=== PATIENT | female | born 1955 | race Caucasian/White ===

== ENCOUNTER → 2019-12-06 08:00 | Outpatient (CLI) | payer BC, SELFPAY ==
--- NOTE | ~2019-12-06 | XR_ITS ---
XR shoulder RT min 2V DATE: 12/06/2019 08:18 INDICATION: Right shoulder pain TECHNIQUE: 4 views COMPARISON: None FINDINGS: Diffuse osteopenia. Normal alignment at the acromion clavicular and glenohumeral joints. No fracture or dislocation, periosteal reaction or bone destruction. There is slight calcification ne ar the insertion of the rotator cuff at the proximal humerus, which may represent minimal calcific te ndinitis. IMPRESSION: Osteopenia Possible minimal calcific tendinitis of the rotator cuff Reviewed, dictated and finalized at location A.
== END ==
PROVIDERS: Visit Provider Family Medicine
DX: M85.811 Other specified disorders of bone density and structure, right shoulder (principal)
CPT/HCPCS: 73030

== ENCOUNTER 2020-04-04 21:25 | Observation (INO) | payer BC, SELFPAY ==
--- NOTE | ~2020-04-04 | CT_ITS ---
EXAMINATION: CT chest wo con DATE: 04/04/2020 22:54 INDICATION: Shortness of breath TECHNIQUE: Computed tomography (CT) of the chest was performed without intravenous contrast. The dose -length product was 1329.49 mGy-cm. Automated exposure control and iterative reconstruction technique were employed. COMPARISON: chest x-ray dated 05/02/2017 FINDINGS: Enlarged pulmonary arteries consistent with pulmonary hypertension. Cardiomegaly. There is patchy lower lobe airspace consolidation, right greater than left. Borderline size mediastinal lymph nodes, likely reactive. Trace right pleural effusion. Upper abdomen is unremarkable. IMPRESSION: 1. Patchy bibasilar airspace disease, right greater than left, most likely atelectasis or pneumonia. 2: Pulmonary arterial hypertension. 3: Cardiomegaly. 4.: Small right pleural effusion. Reviewed, dictated and finalized at location A. EM ARCHIVE ANALYST IMPRESSION: 1. Patchy bibasilar airspace disease, right greater than left, most likely atel ectasis or pneumonia. 2: Pulmonary arterial hypertension. 3: Cardiomegaly. 4.: Small right pleural effusion.
--- NOTE | ~2020-04-04 | XR_ITS ---
EXAMINATION: XR chest 1V portable DATE: 04/07/2020 06:02 INDICATION: congestion. TECHNIQUE: frontal view of the chest was obtained. COMPARISON: Chest radiograph dated 05/02/2017 FINDINGS: Mild streaky bibasilar atelectasis. No pulmonary edema, pleural effusion or pneumothorax. Cardiomegal y. IMPRESSION: 1. Cardiomegaly. 2. Mild bibasilar atelectasis. Reviewed, dictated and finalized at location A. TENDER WASHING
[2020-04-04 21:35] VITALS: BP 157/92; PULSE 80; RESP 18; TEMP 36.6; O2SAT 97
--- NOTE | 2020-04-04 21:56 | ECG_ITS ---
Measurements Intervals [place] Rate: 94 P: NE: 0 QRS: 56 QRSD: 100 T: 12 QT: 349 QTc: 437 Interpretive Statements ATRIAL FIBRILLATION LOW QRS VOLTAGE IN PRECORDIAL LEADS INCOMPLETE RIGHT BUNDLE BRANCH BLOCK BORDERLINE ST-T WAVE ABNORMALITY- INFERIOR LEADS ABNORMAL ECG Electronically Signed On 04-05-2020 7:19:52 VP PURCH[employer]ING by Vick Cole D.O.
--- NOTE | 2020-04-04 22:14 | ED.SOB ---
HPI - SOB/Dyspnea General Chief Complaint: Shortness of Breath/Dyspnea Stated Complaint: SOB Time Seen by Provider: 04/04/20 21:57 Source: patient Mode of arrival: ambulatory Limitations: no limitations History of Present Illness HPI Narrative: Patient is 65-year-old female complaining of shortness of breath, worse with exertion, accompanied by increasing bilateral lower extremity edema that started today. Patient states that she does take a water pill and possibly history of congestive heart failure, not sure. Patient denies any cough, chest pain, abdominal pain, nausea, vomiting, diaphoresis, fever or chills. Related Data Home Medications Medication Instructions Recorded Confirmed losartan 50 mg tablet 50 mg PO DAILY 07/15/19 11/19/19 Allergies Allergy/AdvReac Type Severity Reaction Status Date / Time empagliflozin Allergy Unknown Hives Verified 11/19/19 10:16 iron Allergy Unknown Hives Verified 11/19/19 10:16 liraglutide Allergy Unknown Hives Verified 11/19/19 10:16 metformin Allergy Unknown Itching Verified 11/19/19 10:16 nickel Allergy Unknown Unknown Verified 11/19/19 10:16 adhesive AdvReac Unknown Rash Verified 11/19/19 10:16 Review of Systems Review of Systems: All systems reviewed & are unremarkable except as noted in HPI and below Constitutional: Constitutional: Denies body ache(s), Denies chills, Denies excessive sweating, Denies fatigue, Denies fever(s), Denies headache(s), Denies lethargy, Denies malaise, Denies weakness and Denies weight loss Eyes: Eyes: Denies blurry vision, Denies change in vision and Denies loss of vision ENT: Denies dizziness, Denies ear discharge, Denies headache(s), Denies lip swelling, Denies epistaxis, Denies nasal congestion, Denies neck pain, Denies throat swelling and Denies tongue swelling Cardiovascular: Cardiovascular: Denies chest pain, Denies chest pain at rest, Denies chest pain with activity, Denies diaphoresis, Denies rapid heart rate, Denies irregular heart rhythm, Denies lightheadedness and Denies palpitations Respiratory: Respiratory: Denies chest congestion, Denies cough and Denies hemoptysis Gastrointestinal: Gastrointestinal: Denies abdominal pain, Denies melena, Denies hematochezia, Denies diarrhea, Denies nausea, Denies vomiting and Denies hematemesis Musculoskeletal: Musculoskeletal: Denies abnormal gait, Denies deformity, Denies joint swelling, Denies limited range of motion, Denies neck pain and Denies numbness Neurologic: Denies Abnormal speech present, Denies abnormal gait, Denies confusion, Denies dizziness, Denies headache(s), Denies focal weakness, Denies loss of vision, Denies numbness, Denies Other visual disturbances, Denies Sensory deficit (Neuro) and Denies weakness Psychiatric: Psychiatric: Denies confusion, Denies depression, Denies auditory hallucinations, Denies homicidal ideation and Denies suicidal ideation Endocrine: Endocrine: Denies cold intolerance, Denies excessive sweating, Denies fatigue, Denies heat intolerance and Denies palpitations Hematologic/Lymphatic: Hematologic/Lymphatic: Denies easy bleeding and Denies easy bruising Allergic/Immunologic: Allergic/Immunologic: Denies lip swelling, Denies throat swelling and Denies tongue swelling PMFSH Past Medical History Medical History (Updated 04/05/20 @ 00:02 by Dayton Escobedo MD) A-fib Diabetes Gastroesophageal reflux H/O bone density study (~2019) normal HLD (hyperlipidemia) HTN (hypertension) Paroxysmal atrial fibrillation Vitamin D deficiency Surgical History Surgical History H/O lateral meniscus repair of left knee H/O medial meniscus repair of right knee History of hysterectomy Status post bilateral knee replacements Status post ligament repair Family History Family History Father Hypertension Other Cerebrovascular accident Diabetes mellitus S
[2020-04-04 22:22] LABS: Alveolar/Arterial O2 Gradient 67.8 mmHg; Base Excess ABG -0.7 mEq/l (+/-2.0); Carboxyhemoglobin 0.9 % THb (0-2.0); Fractional Inspired Oxygen 28 %; HCO3 ABG 24.3 mEq/l (22.0-26.0); Methemoglobin ABG 0.2 %THb (0-1.5); Oxygen Saturation ABG 96.1 % (95.0-100.0); Oxyhemoglobin 94.8 % THb (90.0-100.0); PCO2 ABG 41.5 mmHg (35.0-45.0); PO2 ABG 82.9 mmHg (80.0-100.0); PO2 FiO2 Ratio Arterial Blood 2.96 %; Reduced Hemoglobin 4.1 %THb (0-5.0); Total Hemoglobin 13.5 g/dL (12.0-18.0); pH ABG 7.386 (7.350-7.450)
[2020-04-04 22:23] LABS: Basophils Absolute Auto 0.1 K/mm3 (0.0-0.1); Basophils Percent Auto 0.6 % (0.2-1.2); Eosinophils Absolute Auto 0.2 K/mm3 (0-0.3); Eosinophils Percent Auto 1.4 % (0-4.4); Hematocrit 40.6 % (37.0-47.0); Hemoglobin 12.9 g/dL (12.0-15.0); Immature Granulocyte Absolute 0.08 K/mm3 (0.00-0.031); Immature Granulocyte Percent A 0.6 % (0-0.5); Lymphocytes Absolute Auto 1.77 K/mm3 (0.9-3.2); Lymphocytes Percent Auto 14.1 % (18.3-44.2); Mean Corpuscular HGB Conc 31.8 g/dl (32-36); Mean Corpuscular Hemoglobin 27.3 pg (26-34); Mean Corpuscular Volume 85.8 fl (80-100); Mean Platelet Volume 11.3 fl (7.4-10.4); Monocytes Absolute Auto 0.7 K/mm3 (0.1-0.6); Monocytes Percent Auto 5.8 % (2.6-8.5); Neutrophils Absolute Auto 9.7 K/mm3 (1.3-6.7); Neutrophils Percent Auto 77.5 % (45.5-73.1); Platelet Count Result 233 k/mm3 (150-375); Red Blood Count 4.73 M/mm3 (4.2-5.4); White Blood Count 12.5 K/mm3 (4.5-10.0)
[2020-04-04 22:23] LABS: Device NASAL CANNULA; Modified Allen's Test Pass; Site Drawn RIGHT RADIAL
[2020-04-04] MEDS: FUROSEMIDE INJ 40 MG/4 ML VIAL IV PUSH (22:33)
[2020-04-04 22:34] LABS: Alanine Aminotransferase 12 U/L (4-35); Albumin Level 3.9 g/dL (3.5-5.1); Alkaline Phosphatase 67 U/L (38-126); Anion Gap 7 mmol/L (8-16); Aspartate Amino Transferase 22 U/L (14-36); Bilirubin,Total 0.7 mg/dL (0.2-1.3); Blood Urea Nitrogen 13 mg/dL (7-17); Calcium 9.2 mg/dL (8.4-10.2); Carbon Dioxide 30 mmol/L (22-30); Chloride 101 mmol/L (98-107); Estimated Glomerular Filt Rate > 60; Glucose 214 mg/dL (65-105); Potassium 4.7 mmol/L (3.4-5.0); Sodium 138 mmol/L (137-145)
[2020-04-04 22:46] LABS: NT Pro B Type Natriuretic Pept 1210 PG/ML (5-100); Troponin I < 0.012 ng/mL (0.000-0.034)
--- NOTE | 2020-04-04 22:51 | PC.NURSE ---
Patient to CT
[2020-04-05] VITALS (15 sets, daily range): BP systolic 130–159; BP diastolic 67–96; PULSE 76–107; RESP 16–22; TEMP 36.6–36.8; O2SAT 94–98; BMI 57.6
--- NOTE | 2020-04-05 00:53 | PM.IMHP ---
H&P: HPI History of Present Illness Date/Time: 04/05/20 00:53 Chief complaint: CHF Exacerbation, Pulmonary Edema Narrative: Dianne Hassan is a 65 year old morbidly obese Diabetic female with known history of chronic atrial fibrillation anticoagulated on Eliquis, HTN, and hyperlipidemia who presented to the hospital [facility] with a complaint of severe shortness of breath. She has noticed over the past week that she has been experiencing exertional shortness of breath and worsening peripheral edema (increased LE swelling, puffy hands, and abdominal distension. She has a chronic sporadic nonproductive cough which hasn't changed. She denies any recent fevers, chest pain, palpitations, abdominal pain, wheezing, dysuria, rashes, open wounds, or rectal bleeding. She has been taking her Bumex at home as prescribed but does admit that when she travels she stops taking it because she doesn't want to have to stop to urinate frequently. This past week she has been eating salty foods including pizza and potato chips. Even though she is on Bumex for peripheral edema, she states that she has never been diagnosed with heart failure. [facility] she was found to have pulmonary edema on Chest CT and was treated with IV lasix in the ER. She remarks that her breathing has improved already. No other complaints. Review of Systems Review of Systems: All systems reviewed & are unremarkable except as noted in HPI and below PMFSH Past Medical History Medical History A-fib Diabetes Gastroesophageal reflux H/O bone density study (~2018) normal HLD (hyperlipidemia) HTN (hypertension) Paroxysmal atrial fibrillation Vitamin D deficiency Surgical History Surgical History H/O lateral meniscus repair of left knee H/O medial meniscus repair of right knee History of hysterectomy Status post bilateral knee replacements Status post ligament repair Family History Family History Father Hypertension Other Cerebrovascular accident Diabetes mellitus Social History Social History Smoking status: Never smoker Second hand tobacco smoke exposure: No Alcohol intake: never Substance use: never Gender identity (if verbalized by the patient): Female Spiritual care concerns: No Meds Home Medications and Allergies Home Medications Medication Instructions Recorded Confirmed Type metoprolol succinate 50 mg 100 mg PO DAILY #180 tablet 03/11/19 04/05/20 Rx tablet,extended release 24 hr insulin degludec 200 unit/mL (3 100 unit SUB-Q DAILY #45 ml 03/12/19 04/05/20 Rx mL) subcutaneous pen blood sugar diagnostic #300 each 07/15/19 04/05/20 Rx diltiazem HCl 240 mg 240 mg PO BID #180 cap 07/15/19 04/05/20 Rx capsule,extended release 24 hr losartan 50 mg tablet 25 mg PO DAILY 07/15/19 04/05/20 History metformin 1,000 mg tablet 1,000 mg PO BID #180 tablet 07/15/19 04/05/20 Rx apixaban 5 mg tablet 5 mg PO BID #180 tablet 11/19/19 04/05/20 Rx bumetanide 2 mg tablet 2 mg PO DAILY #90 tablet 11/19/19 04/05/20 Rx ergocalciferol (vitamin D2) 1,250 1,250 mcg PO WEEKLY #14 cap 11/19/19 04/05/20 Rx mcg (50,000 unit) capsule pantoprazole 20 mg tablet,delayed 20 mg PO DAILY #90 tablet 11/19/19 04/05/20 Rx release potassium chloride 10 mEq 20 meq PO DAILY #180 tablet 01/27/20 04/05/20 Rx tablet,extended release simvastatin 10 mg PO HS 04/05/20 04/05/20 History Allergies Allergy/AdvReac Type Severity Reaction Status Date / Time empagliflozin Allergy Unknown Hives Verified 11/19/19 10:16 iron Allergy Unknown Hives Verified 11/19/19 10:16 liraglutide Allergy Unknown Hives Verified 11/19/19 10:16 metformin Allergy Unknown Itching Verified 11/19/19 10:16 nickel Allergy Unknown Unknown Verified 11/19/19 10:16 adhesive AdvReac Unknown Rash Emma
--- NOTE | 2020-04-05 02:22 | ADMGEN ---
This patient, Dianne Hassan, was admitted to [facility]. Patient/family oriented to hospital policies and general routines including ID bracelet, bed and alarms, visiting hours, pain management, procedures, bathroom and other care routines, personal items, smoking policy, room service/diet, and visiting hours. Information on how to activate the Rapid Response Team has been discussed. Patient/Family are encouraged to report perceived risks to care and to ask questions if they do not understand what they are told or what they should do.
[2020-04-05 07:00] LABS: Troponin I 0.096 ng/mL (0.000-0.034)
[2020-04-05 09:58] LABS: Glucose Point of Care 103 (65-105)
[2020-04-05] MEDS: BUMETANIDE INJ 1 MG/4 ML VIAL IV PUSH ×2 (10:29→16:24)
[2020-04-05] MEDS: metFORMIN HCL 500 MG TABLET 1000 MG PO ×2 (10:29→16:24)
[2020-04-05] MEDS: APIXABAN 5 MG TABLET PO ×2 (10:29→20:54)
[2020-04-05] MEDS: METOPROLOL SUCCINATE EXT REL 50 MG TABCR 100 MG PO (10:30)
[2020-04-05] MEDS: LOSARTAN POTASSIUM 25 MG TABLET PO (10:30)
[2020-04-05] MEDS: PANTOPRAZOLE SOD SESQUIHYDRATE 20 MG TAB PO (10:30)
[2020-04-05 11:37] LABS: Anion Gap 11 mmol/L (8-16); Blood Urea Nitrogen 10 mg/dL (7-17); Calcium 9.2 mg/dL (8.4-10.2); Carbon Dioxide 27 mmol/L (22-30); Chloride 103 mmol/L (98-107); Estimated CRCL calculation 160 ml/min; Estimated Glomerular Filt Rate > 60; Glucose 142 mg/dL (65-105); Potassium 4.3 mmol/L (3.4-5.0); Sodium 141 mmol/L (137-145)
[2020-04-05 11:56] LABS: Troponin I 0.085 ng/mL (0.000-0.034)
[2020-04-05 12:03] LABS: Free T4 Free Thyroxine Reflex 1.38 ng/dL (0.78-2.19)
[2020-04-05 12:45] LABS: Total Triiodothyronine (T3) 1.32 NG/ML (0.97-1.69)
--- NOTE | 2020-04-05 14:04 | PM.IMPN ---
Progress Note: A&P Assessment and Plan (1) Acute CHF (congestive heart failure): Qualifiers: Heart failure type: unspecified Qualified Code(s): I50.9 - Heart failure, unspecified Code(s): I50.9 - Heart failure, unspecified Status: Acute Assessment and Plan: Type unspecified at present. TSH normal w/ reflex T4, diabetic, fluid restricted, sodium prudent diet. Continue Bumex IV BID. Pat catheter to monitor urine output and quantify urine output. Echocardiogram in am. If ejection fraction decreased may want to increase beta-brooks and decrease calcium channel brooks (2) Leukocytosis: Qualifiers: Leukocytosis type: unspecified Qualified Code(s): D72.829 - Elevated white blood cell count, unspecified Code(s): D72.829 - Elevated white blood cell count, unspecified Status: Acute Assessment and Plan: No obvious source of infection probably stress related and recheck in a.m. (3) Paroxysmal atrial fibrillation: Code(s): I48.0 - Paroxysmal atrial fibrillation Status: Chronic Assessment and Plan: rate controlled. Continue diltiazem, metoprolol, and Eliquis. (4) Diabetes: Qualifiers: Diabetes mellitus type: type 2 Diabetes mellitus intermediate designer insulin use: with intermediate designer use Diabetes mellitus complication status: without complication Qualified Code(s): E11.9 - Type 2 diabetes mellitus without complications; Z79.4 - middle or intermediate school principal (current) use of insulin Code(s): E11.9 - Type 2 diabetes mellitus without complications Status: Chronic Assessment and Plan: Accuchecks, SSI Coverage, Hypoglycemic protocol. Substituted Lantus and lower dose while here and monitor (5) HTN (hypertension): Qualifiers: Hypertension type: unspecified Qualified Code(s): I10 - Essential (primary) hypertension Code(s): I10 - Essential (primary) hypertension Status: Chronic Assessment and Plan: Continue metoprolol and losartan PO and diltiazem. Monitor blood pressure. (6) HLD (hyperlipidemia): Qualifiers: Hyperlipidemia type: unspecified Qualified Code(s): E78.5 - Hyperlipidemia, unspecified Code(s): E78.5 - Hyperlipidemia, unspecified Status: Chronic Assessment and Plan: Continue simvastatin. (7) Gastroesophageal reflux: Qualifiers: Esophagitis presence: esophagitis presence not specified Qualified Code(s): K21.9 - Gastro-esophageal reflux disease without esophagitis Code(s): K21.9 - Gastro-esophageal reflux disease without esophagitis Status: Chronic Assessment and Plan: continue protonix. (8) DVT prophylaxis: Code(s): Z29.9 - Encounter for prophylactic measures, unspecified Status: Acute Assessment and Plan: Jacqueline Subjective Date/time seen: 04/05/20 14:04 Interval history: Date of visit 04/05. 65-year-old hypertensive type 2 diabetic with obstructive sleep apnea and chronic AFib admitted with increasing shortness of breath over the last week. Has had more edema and admits to not following a low salt diet. Denies any chest pain. Relates that she has been taking her medications faithfully. Has occasional dry cough which is chronic and no fever chills. CT scan of the chest in the emergency room showed increased fluid and she has diuresed and feels much better after IV Lasix. Exam Narrative: Exam Narrative: Blood pressure 102/50 pulse is 62 sat 98% on 3 L afebrile Lungs very faint crackle left posterior base CV irregular no murmurs or gallops Abdomen soft nontender obese bowel sounds normal active Extremities large lymphedema with minimal pitting Neuro alert pleasant cooperative no focal deficits Objective Data Vital Signs Vital Signs: Vital Signs - 24 hr 04/04/20 21:35 04/05/20 01:35 04/05/20 02:00 Temperature 36.6 C Pulse Rate 80 93 104 H Respiratory Rate 18 16 Blood Pressure 157/92 H 142/70 H Puls
[2020-04-05 14:37] LABS: Glucose Point of Care 112 (65-105)
[2020-04-05] MEDS: INSULIN GLARGINE (*BKC) 100 UNITS/ML 50 UNITS SUB-Q (15:03)
[2020-04-05 15:09] LABS: Add Urine Microscopic? YES; Appearance Urine Clear (Clear); Bilirubin Urine Negative (Negative); Blood Urine 2+ (Negative); Color Urine Straw (Yellow); Glucose Urine UA Negative (Negative); Ketones Urine Negative (Negative); Leukocyte Esterase Ur Trace LEU/UL (Negative); Mucus Urine Rare /lpf; Nitrate Urine Negative (Negative); Protein Urine Negative (Negative); RBC Urine 21-50 /hpf (0-2); Specific Grav Ur 1.012 (1.001-1.035); Urobilinogen Urine Negative mg/dL (<2.0)
[2020-04-05] MEDS: SIMVASTATIN 10 MG TABLET PO (20:55)
[2020-04-05 20:58] LABS: Glucose Point of Care 156 (65-105)
[2020-04-06] VITALS (15 sets, daily range): BP systolic 115–145; BP diastolic 67–93; PULSE 79–102; RESP 14–21; TEMP 36.2–36.7; O2SAT 92–98
--- NOTE | 2020-04-06 00:37 | ECHO_ITS ---
Patient Info Name: Dianne Hassan Age: 65 years : 1955 Gender: Female Ht: 68 in Wt: 348 lbs BSA: 2.84 m2 HR: 93 bpm BP: 140 / 90 mmHg Heart Rhythm: Atrial Fibrillation Technical Quality: Fair Exam Date: 04/06/2020 10:35 AM Exam Location: [facility] Patient Status: Outpatient Admit Date: 04/05/2020 Staff Ordering Physician: Joon Anaya MD Python Programmer: Cristian Perera RDCS, RT Attending Provider: Joon Anaya MD Referring Physician: Héctor PERES; Exam Type: CA echo dop color flow w con Study Info Indications I50.9 - Heart failure, unspecified Complete two-dimensional, color flow and Doppler transthoracic echocardiogram is performed with contrast to opacify the left ventricle and to improve the deliniation of the left ventricle endocardial borders. Summary 1. Left ventricular chamber dimension is normal. 2. Definity contrast administered improved wall motion interpretation. 3. Left ventricular systolic function is normal, estimated at 60-65%. 4. There is moderately increased left ventricular wall thickness. 5. The left ventricular diastolic function is normal. 6. E/e' 8 is minimally elevated. 7. Probably in atrial fibrillation. 8. Left atrial chamber dimension is moderately enlarged. 9. Right atrial chamber dimension is moderately enlarged. 10. There is mild aortic valve sclerosis. 11. The mitral valve has mildly calcified annulus. 12. There is mild mitral valve regurgitation. 13. Moderate pulmonary hypertension, estimated pulmonary arterial systolic pressure is 50 mmHg. 14. Dilated inferior vena cava with >50% collapse upon inspiration consistent with elevated right atrial pressure, 10 mmHg. 15. There is small circumferential pericardial effusion. Left Ventricle Probably in atrial fibrillation. E/e' 8 is minimally elevated. Definity contrast administered improved wall motion interpretation. Left ventricular chamber dimension is normal. Left ventricular systolic function is normal, estimated at 60-65%. There is moderately increased left ventricular wall thickness. The left ventricular diastolic function is normal. Right Ventricle Right ventricular chamber dimension is not well visualized. Left Atria Left atrial chamber dimension is moderately enlarged. Right Atria Right atrial chamber dimension is moderately enlarged. Aortic Valve The aortic valve is trileaflet. There is mild aortic valve sclerosis. There is no aortic valve stenosis. There is no aortic valve regurgitation. Pulmonic Valve There is no pulmonic regurgitation. Mitral Valve The mitral valve has mildly calcified annulus. There is no mitral valve stenosis. There is mild mitral valve regurgitation. Tricuspid Valve There is no tricuspid valve regurgitation. Moderate pulmonary hypertension, estimated pulmonary arterial systolic pressure is 50 mmHg. Pericardium/Pleural There is small circumferential pericardial effusion. Inferior Vena Cava Dilated inferior vena cava with >50% collapse upon inspiration consistent with elevated right atrial pressure, 10 mmHg. Aorta The aortic root size at the sinus of Valsalva is normal. Left Ventricular Outflow Tract Name Value Normal LVOT 2D LVOT Diameter
[2020-04-06 04:48] LABS: Basophils Absolute Auto 0.1 K/mm3 (0.0-0.1); Basophils Percent Auto 0.5 % (0.2-1.2); Eosinophils Absolute Auto 0.1 K/mm3 (0-0.3); Eosinophils Percent Auto 1.1 % (0-4.4); Hematocrit 38.7 % (37.0-47.0); Hemoglobin 12.5 g/dL (12.0-15.0); Immature Granulocyte Absolute 0.05 K/mm3 (0.00-0.031); Immature Granulocyte Percent A 0.4 % (0-0.5); Lymphocytes Absolute Auto 2.23 K/mm3 (0.9-3.2); Lymphocytes Percent Auto 18.1 % (18.3-44.2); Mean Corpuscular HGB Conc 32.3 g/dl (32-36); Mean Corpuscular Hemoglobin 26.3 pg (26-34); Mean Corpuscular Volume 81.3 fl (80-100); Mean Platelet Volume 11.5 fl (7.4-10.4); Monocytes Absolute Auto 1.3 K/mm3 (0.1-0.6); Monocytes Percent Auto 10.4 % (2.6-8.5); Neutrophils Absolute Auto 8.6 K/mm3 (1.3-6.7); Neutrophils Percent Auto 69.5 % (45.5-73.1); Platelet Count Result 253 k/mm3 (150-375); Red Blood Count 4.76 M/mm3 (4.2-5.4); Red Cell Distribution Width 15.7 % (11.5-14.5); White Blood Count 12.3 K/mm3 (4.5-10.0)
[2020-04-06 05:03] LABS: Anion Gap 5 mmol/L (8-16); Blood Urea Nitrogen 12 mg/dL (7-17); Calcium 8.8 mg/dL (8.4-10.2); Carbon Dioxide 35 mmol/L (22-30); Chloride 97 mmol/L (98-107); Estimated CRCL calculation 136 ml/min; Estimated Glomerular Filt Rate > 60; Glucose 101 mg/dL (65-105); Magnesium 1.5 mg/dL (1.6-2.3); Potassium 3.2 mmol/L (3.4-5.0); Sodium 137 mmol/L (137-145)
[2020-04-06 05:20] LABS: Troponin I 0.113 ng/mL (0.000-0.034)
[2020-04-06 07:40] LABS: Glucose Point of Care 86 (65-105)
[2020-04-06] MEDS: MAGNESIUM SULF 2 GM/WATER 50ML 2 GM/50 ML BAG IVPB (08:53)
[2020-04-06] MEDS: APIXABAN 5 MG TABLET PO ×2 (08:54→20:01)
[2020-04-06] MEDS: ERGOCALCIFEROL 50,000 UNIT CAPSULE 50000 UNITS PO (08:54)
[2020-04-06] MEDS: LOSARTAN POTASSIUM 25 MG TABLET PO (08:54)
[2020-04-06] MEDS: BUMETANIDE INJ 1 MG/4 ML VIAL IV PUSH ×2 (08:54→16:37)
[2020-04-06] MEDS: METOPROLOL SUCCINATE EXT REL 50 MG TABCR 100 MG PO (08:54)
[2020-04-06] MEDS: PANTOPRAZOLE SOD SESQUIHYDRATE 20 MG TAB PO (08:55)
[2020-04-06] MEDS: POTASSIUM CHLORIDE 20 MEQ TABLET 40 MEQ PO ×3 (08:55→16:37)
[2020-04-06] MEDS: metFORMIN HCL 500 MG TABLET 1000 MG PO ×2 (08:55→16:38)
[2020-04-06] MEDS: INSULIN GLARGINE (*BKC) 100 UNITS/ML 50 UNITS SUB-Q (09:47)
--- NOTE | 2020-04-06 10:30 | PM.CNCAR ---
Assessment and Plan Additional Plan 65-year-old female with chronic atrial fibrillation presenting with some shortness of breath and the clinical impression that she was volume overloaded. With this patient's more state of morbid obesity I find it very hard to assess her state of volume on physical exam. She does have some chronic lower extremity edema which does not appear to be out of proportion to her BMI. She does use chronic compression devices in her lower extremities and she says recently they and been tighter than normal indicating she might be retaining some fluid. She did not have a chest x-ray in the emergency room she did have a chest CT that apparently shows a small right pleural effusion. At this point I would continue her on her apixaban and her rate control regimen. An echocardiogram has been requested. When that is completed later today I will review this study and provide further recommendations if necessary. Padilla Winchester MD [facility] History of Present Illness History of Present Illness Consult date/time: 04/06/20 10:30 Consult reason: atrial fibrillation and shortness of breath Reason For Visit: CHF Exacerbation, Pulmonary Edema Narrative: This is a 65-year-old woman who has chronic atrial fibrillation who is a regular patient in follows with me in the office on an annual basis. She has not had any cardiac problems other than atrial fibrillation according to my notes. A long time ago she presented with atrial fibrillation of unknown chronicity. An attempt was made to electrically cardiovert her back to sinus rhythm which failed and as such she has been managed with rate control and anticoagulation for a long time. Her regimen includes apixaban for anticoagulation, a combination of metoprolol and diltiazem for heart rate control. She states that and recently she became short of breath in the last couple of weeks. The shortness of breath was concerning to her she thought at 1st she might have some sinus congestion but then noticed that her nose was clear and was concerned about the possibility of retaining fluid. She thought her lower extremities look more swollen than typical and so she eventually came to the emergency department last night for evaluation. She was apparently felt to be somewhat volume overloaded as she was given a dose of intravenous furosemide. She has had a prompt diuresis at least 7-8 L of fluid output since being seen in the emergency room and her shortness of breath is largely resolved. She offers no other complaints today. An echocardiogram has been requested by the hospitalist which has yet to be performed at the time of this dictation. She offers no other complaints period she is not known to have coronary artery disease. She did have an ischemia evaluation a couple of years ago with a Lexiscan nuclear study when she had some atypical sounding chest pain. For principal comorbidities include morbid obesity and hypertension. Current BMI is 56.3. Review of Systems Constitutional: Constitutional: Reports no additional constitutional complaints Eyes: Eyes: Reports no additional eye complaints ENT: Reports system reviewed and no additional complaints, except as documented Cardiovascular: Cardiovascular: Reports as per HPI Respiratory: Respiratory: Reports as per HPI Gastrointestinal: Gastrointestinal: Reports no additional gastrointestinal complaints Musculoskeletal: Musculoskeletal: Reports no additional musculoskeletal complaints Integumentary/Breasts: Skin/Breast: Reports system reviewed and no additional complaints, except as docu Neurologic: Reports system reviewed and no additional complaints, except as documented Endocrine: Endocrine: Reports no additional endocrine complaints Hematologic/Lymphatic: Hematologic/Lymphatic: Reports no additional hematologic/lymphatic complaints Allergic/Immunologic: Allergic/Immunologic: Reports no additional allergic/immunologic complaints [facility]
[2020-04-06] MEDS: PERFLUTREN LIPID MICROSPHERES 1.5 ML VIAL DILUTED TO 10 ML TOTAL VOLUME IV PUSH (11:04)
[2020-04-06 11:20] LABS: Glucose Point of Care 88 (65-105)
--- NOTE | 2020-04-06 15:39 | PM.IMPN ---
Progress Note: A&P Assessment and Plan (1) Acute CHF (congestive heart failure): Qualifiers: Heart failure type: unspecified Qualified Code(s): I50.9 - Heart failure, unspecified Code(s): I50.9 - Heart failure, unspecified Status: Acute Assessment and Plan: With preserved ventricular function. TSH normal w/ reflex T4, . Continue Bumex IV BID today and transition back to oral 04/07 with CO2 rising . Pat catheter to monitor urine output and quantify urine output and DC in a.m.. Echocardiogram revealed normal left ventricular ejection fraction of 60-65% with left ventricular hypertrophy, and pulmonary hypertension estimated at 50. Has documented and treated sleep apnea and is on chronic anticoagulation for her AFib Chest x-ray in a.m., DC Pat then., replace potassium and magnesium, hopefully discharge a.m. 04/07 (2) Leukocytosis: Qualifiers: Leukocytosis type: unspecified Qualified Code(s): D72.829 - Elevated white blood cell count, unspecified Code(s): D72.829 - Elevated white blood cell count, unspecified Status: Acute Assessment and Plan: No obvious source of infection probably stress related, unchanged and recheck in a.m.. (3) Paroxysmal atrial fibrillation: Code(s): I48.0 - Paroxysmal atrial fibrillation Status: Chronic Assessment and Plan: rate controlled. Continue diltiazem, metoprolol, and Eliquis. (4) Diabetes: Qualifiers: Diabetes mellitus type: type 2 Diabetes mellitus [facility] insulin use: with [facility] use Diabetes mellitus complication status: without complication Qualified Code(s): E11.9 - Type 2 diabetes mellitus without complications; Z79.4 - [facility] (current) use of insulin Code(s): E11.9 - Type 2 diabetes mellitus without complications Status: Chronic Assessment and Plan: Accuchecks, SSI Coverage, Hypoglycemic protocol. Substituted Lantus and lower dose(50 U) while here and FBS today only 101, suggesting poor dietary compliance at home with her dose of insulin that she has of the U 200 at 100 units (5) HTN (hypertension): Qualifiers: Hypertension type: unspecified Qualified Code(s): I10 - Essential (primary) hypertension Code(s): I10 - Essential (primary) hypertension Status: Chronic Assessment and Plan: Continue metoprolol and losartan PO and diltiazem with blood pressure 04/06 adequately control (6) HLD (hyperlipidemia): Qualifiers: Hyperlipidemia type: unspecified Qualified Code(s): E78.5 - Hyperlipidemia, unspecified Code(s): E78.5 - Hyperlipidemia, unspecified Status: Chronic Assessment and Plan: Continue simvastatin. (7) Gastroesophageal reflux: Qualifiers: Esophagitis presence: esophagitis presence not specified Qualified Code(s): K21.9 - Gastro-esophageal reflux disease without esophagitis Code(s): K21.9 - Gastro-esophageal reflux disease without esophagitis Status: Chronic Assessment and Plan: continue protonix. (8) DVT prophylaxis: Code(s): Z29.9 - Encounter for prophylactic measures, unspecified Status: Acute Assessment and Plan: Eliquis Subjective Date/time seen: 04/06/20 15:39 Interval history: Date of visit 04/06. 65-year-old hypertensive type 2 diabetic with obstructive sleep apnea and chronic AFib admitted with increasing shortness of breath over the last week. Has had more edema and admits to not following a low salt diet. Denies any chest pain. Relates that she has been taking her medications faithfully. Has occasional dry cough which is chronic and no fever chills. CT scan of the chest in the emergency room showed increased fluid and she has diuresed and feels much better .. Exam Narrative: Exam Narrative: Blood pressure 140/80 pulse is 86 sat 98% on RA afebrile Lungs clear today CV irregular no murmurs or gallops Abdomen soft nontender
[2020-04-06 16:21] LABS: Glucose Point of Care 95 (65-105)
[2020-04-06] MEDS: SIMVASTATIN 10 MG TABLET PO (20:01)
[2020-04-06 20:10] LABS: Glucose Point of Care 142 (65-105)
[2020-04-07] VITALS (8 sets, daily range): BP systolic 106–123; BP diastolic 63–84; PULSE 72–99; RESP 17–24; TEMP 36.1–36.8; O2SAT 95–96
[2020-04-07 05:47] LABS: Anion Gap 2 mmol/L (8-16); Blood Urea Nitrogen 18 mg/dL (7-17); Calcium 8.8 mg/dL (8.4-10.2); Carbon Dioxide 33 mmol/L (22-30); Chloride 100 mmol/L (98-107); Estimated CRCL calculation 133 ml/min; Estimated Glomerular Filt Rate > 60; Glucose 61 mg/dL (65-105); Magnesium 1.9 mg/dL (1.6-2.3); Potassium 4.2 mmol/L (3.4-5.0); Sodium 135 mmol/L (137-145)
[2020-04-07 07:49] LABS: Glucose Point of Care 65 (65-105)
[2020-04-07] MEDS: PANTOPRAZOLE SOD SESQUIHYDRATE 20 MG TAB PO (08:58)
[2020-04-07] MEDS: BUMETANIDE 1 MG TABLET 2 MG PO (08:58)
[2020-04-07] MEDS: METOPROLOL SUCCINATE EXT REL 50 MG TABCR 100 MG PO (08:59)
[2020-04-07] MEDS: metFORMIN HCL 500 MG TABLET 1000 MG PO (08:59)
[2020-04-07] MEDS: APIXABAN 5 MG TABLET PO (08:59)
[2020-04-07] MEDS: LOSARTAN POTASSIUM 25 MG TABLET PO (08:59)
--- NOTE | 2020-04-07 09:16 | PM.PNCARD ---
Progress Note: A&P Additional Plan 65-year-old lady with: Some shortness of breath and subjective sense of volume overload etiology not clear since her cardiac evaluation nor her renal function appear to have declined. She is asymptomatic for the last 12-18 hours and appears to be a good candidate for discharge. I have no cardiac reason to adjust her medications. She does consume a diet that is relatively high in sodium but that is unlikely to be enough of a problem to create this situation in the setting of normal renal function and no proteinuria. Padilla Winchester MD [facility] Subjective Date/time seen: Date of service: 04/07/20 09:16 Interval history: Follow-up visit in this 65-year-old lady with: Some shortness of breath and the subjective sense of volume overload which appears to have responded well to intravenous furosemide on arrival. Patient is now asymptomatic feeling well as of last night still feels well this morning is relaxing reading a book as I entered the room to see her. Reason for the volume overload is not clear as the patient's echocardiogram shows no decline in LV function or significant valvulopathy and renal function is apparently normal as well. Exam Const: General: comfortable and no acute distress Other: Pleasant morbidly obese lady comfortable cooperative no distress HENMT: Mouth: Yes moist mucous membranes Eyes: Sclera: sclerae normal Pupils: Equal, round and reactive pupils present Neck: Neck: no JVD Thyroid: thyroid normal Resp: Effort & Inspection: normal respiratory effort Auscultation: clear to auscultation bilaterally Other: Breath sounds are somewhat distant because of body habitus Cardio: Rhythm: abnormal rhythm irregularly irregular GI: GI Palp: Yes Soft to palpation Auscultation: normal bowel sounds Skin: General skin exam: normal color Neuro: Cognition (Neuro): normal cognition Extrem: Other: Massively obese, normal pulses Objective Data Vital Signs Vital Signs: Vital Signs - 24 hr 04/06/20 10:00 04/06/20 11:57 04/06/20 12:00 Temperature Pulse Rate 84 100 99 Respiratory Rate 14 Blood Pressure 140/84 Pulse Oximetry 95 04/06/20 13:59 04/06/20 15:50 04/06/20 16:00 Temperature Pulse Rate 89 79 81 Respiratory Rate 21 H Blood Pressure 125/67 Pulse Oximetry 97 04/06/20 17:56 04/06/20 20:00 04/06/20 21:42 Temperature 36.7 C Pulse Rate 85 102 H 99 Respiratory Rate 20 Blood Pressure 115/93 H Pulse Oximetry 98 04/07/20 00:00 04/07/20 01:48 04/07/20 04:00 Temperature 36.8 C Pulse Rate 88 72 83 Respiratory Rate 20 17 Blood Pressure 123/84 106/71 Pulse Oximetry 96 96 04/07/20 06:00 04/07/20 08:00 04/07/20 08:59 Temperature 36.1 C L Pulse Rate 74 99 99 Respiratory Rate 24 H Blood Pressure 119/63 Pulse Oximetry 95 Intake/Output Intake/Output: Intake & Output 04/04/20 04/05/20 04/06/20 04/07/20 23:59 23:59 23:59 23:59 Intake Total 870 1350 390 Output Total 3150 1900 1400 Balance -2280 -550 -1010 Meds/Results Medications: Active Medications Generic Name Dose Route Start Last Admin Trade Name Freq PRN Reason Stop Dose Admin Acetaminophen 650 mg 04/05/20 00:35 Acetaminophen 325 Mg Tablet PO Q4H PRN Mild Pain (1-3) or Fever Hydrocodone Bitart/Acetaminophen 1 tab 04/05/20 00:35 Hydrocodone/Acetaminophen (*Crx) 5-325 Mg Tablet PO Q4H PRN Moderate Pain (4-6) Apixaban 5 mg 04/05/20 09:00 04/07/20 08:59 Apixaban 5 Mg Tablet PO 5 mg Q12HR STEPAN Administration Bumetanide 2 mg 04/07/20 09:00 04/07/20 08:58 Bumetanide 1 Mg Tablet PO 2 mg BID STEPAN Administration Dextrose 12.5 gm 04/05/20 00:34 Dextrose 50% 25 Gm/50 Ml Syringe IV PUSH PRN PRN Hypoglycemia Protocol Diltiazem HCl 240 mg 04/05/20 09:00 04/07/20 08:59 Diltiazem Hcl Cd 240 Mg Cap.Er.24h PO 240 mg Q12HR STEPAN Administration Ergocalciferol 50,000 unit
[2020-04-07 12:20] LABS: Glucose Point of Care 104 (65-105)
--- NOTE | 2020-04-07 12:48 | PM.DS ---
DS: Admitting Diagnosis Admitting Diagnosis Admitting Diagnosis: CHF Exacerbation, Pulmonary Edema DS: Discharge Diagnosis Discharge Diagnosis (1) Acute CHF (congestive heart failure): Qualifiers: Heart failure type: unspecified Qualified Code(s): I50.9 - Heart failure, unspecified Code(s): I50.9 - Heart failure, unspecified Status: Acute Assessment and Plan: Acute CHF but with preserved ventricular function. CXR on admission showing R>L airspace disease. BNP 1210. Trop elevated to 0.113 felt Type II IA from the CHF. TSH normal. Treated with Bumex IV BID with excellent UOP. She does have lymphedema and uses the pumps at home. Echocardiogram revealed normal left ventricular ejection fraction of 60-65% with left ventricular hypertrophy, and pulmonary hypertension estimated at 50. Has documented and treated sleep apnea and is on chronic anticoagulation for her AFib. CXR on day of discharge showing atelectasis with resolution of the edema. She feels symptomatically better. Cardiology was involved in her care. (2) Leukocytosis: Qualifiers: Leukocytosis type: unspecified Qualified Code(s): D72.829 - Elevated white blood cell count, unspecified Code(s): D72.829 - Elevated white blood cell count, unspecified Status: Acute Assessment and Plan: WBC slightly elevated at 12.5K but no obvious source of infection. UA not related to UTI and no fevers. [place] probably stress related. WBC unchanged on recheck (3) Paroxysmal atrial fibrillation: Code(s): I48.0 - Paroxysmal atrial fibrillation Status: Chronic Assessment and Plan: Patient with atrial fibrillation. She remained rate controlled. We continued diltiazem, metoprolol, and Eliquis. (4) Diabetes: Qualifiers: Diabetes mellitus type: type 2 Diabetes mellitus medical terminologist insulin use: with detention use Diabetes mellitus complication status: without complication Qualified Code(s): E11.9 - Type 2 diabetes mellitus without complications; Z79.4 - retirement (current) use of insulin Code(s): E11.9 - Type 2 diabetes mellitus without complications Status: Chronic Assessment and Plan: Glucose remined well controlled. We continued AccuCheks covering with sliding scale. Hypoglycemia protocol was available as needed. Continue home regiment and monitor glucose closely. (5) HTN (hypertension): Qualifiers: Hypertension type: unspecified Qualified Code(s): I10 - Essential (primary) hypertension Code(s): I10 - Essential (primary) hypertension Status: Chronic Assessment and Plan: BP remained well controlled. We continued metoprolol, losartan and diltiazem. (6) HLD (hyperlipidemia): Qualifiers: Hyperlipidemia type: unspecified Qualified Code(s): E78.5 - Hyperlipidemia, unspecified Code(s): E78.5 - Hyperlipidemia, unspecified Status: Chronic Assessment and Plan: Stable. We continued simvastatin. (7) Gastroesophageal reflux: Qualifiers: Esophagitis presence: esophagitis presence not specified Qualified Code(s): K21.9 - Gastro-esophageal reflux disease without esophagitis Code(s): K21.9 - Gastro-esophageal reflux disease without esophagitis Status: Chronic Assessment and Plan: Stable. We continued protonix. DS: Summary Hospital Course Reason for hospitalization: 65yo female here for SOB and found to have CHF exacerbation. Please see H&P for details. Hospital Course: Please see above for hospital course. Status at Discharge Cognitive/behavioral status at discharge: PATIENT IS STABLE FOR DISCHARGE Time Spent with Patient Time attestation: Total time spent providing and/or coordinating discharge services: 32 minutes Time spent: Greater than 30 minutes Exam Narrative: Exam Narrative: AF 97.0 119/63 80 2 95% ra Gen - NARD sitting up in chair
== END 2020-04-07 14:12 | disposition home or self-care (01) ==
LOC: ANHED 04-05 00:23 → ANHCPC 04-05 00:52
PROVIDERS: Internal Medicine; Admitting Provider Family Medicine; Emergency Provider Emergency Medicine; PCP Family Medicine; Visit Provider Internal Medicine
DX: I11.0 Hypertensive heart disease with heart failure (principal); I50.9 Heart failure, unspecified; D72.829 Elevated white blood cell count, unspecified; I48.0 Paroxysmal atrial fibrillation; E11.9 Type 2 diabetes mellitus without complications; E78.5 Hyperlipidemia, unspecified; K21.9 Gastro-esophageal reflux disease without esophagitis; I31.3 Pericardial effusion (noninflammatory); J98.11 Atelectasis; R06.02 Shortness of breath; I51.7 Cardiomegaly; R60.0 Localized edema; J90 Pleural effusion, not elsewhere classified; I27.20 Pulmonary hypertension, unspecified; R05 Cough; E55.9 Vitamin D deficiency, unspecified; R94.31 Abnormal electrocardiogram [ECG] [EKG]; E66.01 Morbid (severe) obesity due to excess calories; Z68.43 Body mass index [BMI] 50.0-59.9, adult; Z79.01 Long term (current) use of anticoagulants; Z79.4 Long term (current) use of insulin; Z79.899 Other long term (current) drug therapy
CPT/HCPCS: 36415; 36600; 51702; 71045; 71250; 80048; 80053; 81001; 82375; 82805; 83050; 83735; 83880; 84439; 84443; 84480; 84484; 85025; 93005; 96374; 96375; 96376; 99285; A9270; C8929; G0378; J1815; J1940; J3475; Q9957

== ENCOUNTER → 2020-11-11 13:59 | Outpatient (CLI) | payer BC, SELFPAY ==
--- NOTE | ~2020-11-11 | MM_ITS ---
EXAMINATION: MM screening ankit BI w marium HISTORY: Screening mammogram TECHNIQUE: Craniocaudal and mediolateral oblique 3-D tomosynthesis images were obtained and synthetic 2-D images were generated. CAD analysis was submitted and interpreted. COMPARISON: 03/18/2019, 02/06/2017, 04/28/2015 BREAST PARENCHYMAL COMPOSITION: There are scattered areas of fibroglandular density. FINDINGS: Again noted are stable bilateral breast masses, consistent with benign findings. There is n o evidence of suspicious mass, calcification, or architectural distortion to suggest malignancy in ei ther breast. There has been no suspicious interval change. IMPRESSION: 1. No mammographic evidence of malignancy. 2. Recommend routine screening mammography in one year. BI-RADS Category 2: Benign finding(s). Reviewed, dictated and finalized at location A.
== END ==
PROVIDERS: PCP Family Medicine; Visit Provider Family Medicine
DX: Z12.31 Encounter for screening mammogram for malignant neoplasm of breast (principal)
CPT/HCPCS: 77063; 77067

== ENCOUNTER 2022-03-08 12:42 | Emergency (ER) | payer MEDICARE, SELFPAY ==
[2022-03-08 12:40] VITALS: BP 126/48; PULSE 76; RESP 20; TEMP 36.4; O2SAT 94
[2022-03-08] MEDS: DEXTROSE 50% 25 GM/50 ML SYRINGE 50 GM (12:49)
[2022-03-08 13:04] LABS: Glucose Point of Care 40 mg/dl (65-105)
--- NOTE | 2022-03-08 13:04 | PC.NURSE ---
pt states she at a [employer] cream bar and some nuts early this am. took her insulin and was getting ready to leave to vote when she noticed her chest pounding and cool sensation over her entire body. also noted sweating. took her blood sugar and was 41 so she contacted ems. ems states their initial bs was 37. gave oral glucose. upon arrival to ed pt alert and oriented x 3. states that chest pounding sensation is returning.
[2022-03-08 13:30] LABS: Glucose Point of Care 182 mg/dl (65-105)
--- NOTE | 2022-03-08 14:07 | ED.RECABL ---
HPI - Recheck/Abnormal Lab/Rx General Chief Complaint: Recheck/Abnormal Lab/Rx Stated Complaint: palpitations Time Seen by Provider: 03/08/22 13:46 History of Present Illness HPI narrative: Patient is a 67-year-old female with a history of hyperlipidemia, insulin-dependent diabetes, hypertension, CHF, A. fib presenting with an episode of hypoglycemia. Patient states that she was at home this morning when she became hot, sweaty, shaky. States that her heart felt like it was pounding so she called EMS. For EMS, her blood sugar was 36. She was given oral glucose and transferred to the ER. On arrival, her glucose was in the 40s so she was given 2 amps of dextrose. Her subsequent glucose was in the 180s. Patient states that she feels significantly improved. She no longer has any of the symptoms that she had this morning. She denies any chest pain, cough, shortness of breath, new leg swelling. She denies any recent medication changes. No fevers or chills, abdominal pain, nausea or vomiting, diarrhea, dysuria. Related Data Allergies Allergy/AdvReac Type Severity Reaction Status Date / Time empagliflozin Allergy Unknown Hives Verified 03/09/22 09:22 iron Allergy Unknown Hives Verified 03/09/22 09:22 liraglutide Allergy Unknown Hives Verified 03/09/22 09:22 metformin Allergy Unknown Itching Verified 03/09/22 09:22 nickel Allergy Unknown Unknown Verified 03/09/22 09:22 adhesive AdvReac Unknown Rash Verified 03/09/22 09:22 Review of Systems Review of Systems: All systems reviewed & are unremarkable except as noted in HPI and below PMFSH Past Medical History Medical History A-fib Anemia Diabetes Gastroesophageal reflux H/O bone density study (~2019) normal HLD (hyperlipidemia) HTN (hypertension) Iron deficiency Obesity, morbid, BMI 50 or higher Paroxysmal atrial fibrillation Vitamin D deficiency Surgical History Surgical History H/O lateral meniscus repair of left knee H/O medial meniscus repair of right knee History of hysterectomy Status post bilateral knee replacements Status post ligament repair Family History Family History Father Hypertension Other Cerebrovascular accident Diabetes mellitus Social History Social History (Updated 03/09/22 @ 09:21 by Osiris Crespo STAGE ELECTRICIAN HELPER) Smoking status: Never smoker Second hand tobacco smoke exposure: No Alcohol intake: never Substance use: never Substance use type: does not use Lack of Transportation: No Lack of Food: Never True Current Housing: I Have Housing Concerned About Future Housing: No Difficulty Paying Gas/Electric Bills: No Difficulty Paying for Meds: No Currently Unemployed: No Education: Bachelor's Degree Difficulty w/ Childcare or Family Care: No Gender identity (if verbalized by the patient): Female Spiritual care concerns: No Agree to blood products: Yes Exam Narrative: GENERAL: Well-appearing, well-nourished, and in no acute distress. HEAD: Normocephalic, atraumatic. EYES: PERRLA and EOMI. ENT: Nares clear, no rhinorrhea or epistaxis. Mucous membranes moist. NECK: Supple. CHEST: Clear to auscultation. No respiratory distress. HEART: Regular rate and rhythm. No murmur heard. Normal peripheral pulses. ABDOMEN: Soft, nontender, nondistended, normal active bowel sounds. EXTREMITIES: Normal range of motion. No edema. SKIN: Warm, dry, no rash. NEURO: No focal deficits. Alert and oriented x3. PSYCH: Normal mood and affect. Course Vital Signs Vital signs: Vital Signs Temperature 97.6 F 03/08/22 12:40 Pulse Rate 76 03/08/22 12:40 Respiratory Rate 20 03/08/22 12:40 Blood Pressure 126/48 L 03/08/22 12:40 Pulse Oximetry 94 03/08/22 12:40 Oxygen Delivery Room Air 03/08/22 12:40 Temperature 97.6 F 03/08/22 12:40 Pulse Ra
[2022-03-08 16:11] LABS: Glucose Point of Care 158 mg/dl (65-105)
[2022-03-08 16:17] VITALS: BP 140/63; PULSE 60; RESP 18
--- NOTE | 2022-03-08 16:17 | PC.NURSE ---
pt states is feeling much better. ate 90% of dinner tray. pending disposition
== END 2022-03-08 16:30 | disposition home or self-care (01) ==
PROVIDERS: Emergency Provider Emergency Medicine; PCP Family Medicine
DX: E11.649 Type 2 diabetes mellitus with hypoglycemia without coma (principal); K21.9 Gastro-esophageal reflux disease without esophagitis; I50.9 Heart failure, unspecified; I11.0 Hypertensive heart disease with heart failure; Z79.84 Long term (current) use of oral hypoglycemic drugs; I48.0 Paroxysmal atrial fibrillation; E78.5 Hyperlipidemia, unspecified; E55.9 Vitamin D deficiency, unspecified; E66.01 Morbid (severe) obesity due to excess calories; Z68.43 Body mass index [BMI] 50.0-59.9, adult; Z86.2 Personal history of diseases of the blood and blood-forming organs and certain disorders involving the immune mechanism; Z90.710 Acquired absence of both cervix and uterus; Z96.653 Presence of artificial knee joint, bilateral; Z79.01 Long term (current) use of anticoagulants; Z79.4 Long term (current) use of insulin
CPT/HCPCS: 82948; 96374; 99284

== ENCOUNTER 2023-06-20 23:05 | Observation (INO) | payer MEDICARE, SELFPAY ==
--- NOTE | ~2023-06-20 | XR_ITS ---
EXAMINATION: XR chest 2V DATE: 06/20/2023 23:43 INDICATION: Shortness of breath. Cough. TECHNIQUE: Frontal and lateral views of the chest were obtained. COMPARISON: Chest single view 04/07/2020, chest CT 04/04/2020 FINDINGS: There is mild atelectasis in right lower lung zone. No pleural effusion or pneumothorax. Ca rdiomegaly is noted. IMPRESSION: 1. Mild atelectasis in right lower lung zone. 2. Cardiomegaly. Reviewed, dictated and finalized at location E. ER AND SORTER LOAD AND UNLOAD
[2023-06-20 23:07] VITALS: BP 160/96; PULSE 99; RESP 22; TEMP 36.9; O2SAT 88
--- NOTE | 2023-06-20 23:14 | ECG_ITS ---
Measurements Intervals [place] Rate: 88 P: [place]: 0 QRS: 55 QRSD: 110 T: 10 QT: 369 QTc: 449 Interpretive Statements ATRIAL FIBRILLATION LOW QRS VOLTAGE IN PRECORDIAL LEADS [QRS DEFLECTION < 1.0 mV IN CHEST LEADS] POSSIBLE RIGHT VENTRICULAR CONDUCTION DELAY [RSR (QR) IN V1/V2] MODERATE ST DEPRESSION [0.05+ mV ST DEPRESSION] ABNORMAL ECG COMPARED TO ECG 04/04/2020 22:13:57 ST (T WAVE) DEVIATION NOW PRESENT Electronically Signed On 06-21-2023 16:21:06 FOOD SERVICE TRAY ATTENDANT by Yordy Peterson M.D.
[2023-06-20 23:18] VITALS: O2SAT 97
[2023-06-20 23:30] LABS: Basophils Absolute Auto 0.1 K/mm3 (0.0-0.1); Basophils Percent Auto 1.1 % (0.2-1.2); Eosinophils Absolute Auto 0.3 K/mm3 (0-0.3); Eosinophils Percent Auto 3.6 % (0-4.4); Hematocrit 39.6 % (37.0-47.0); Hemoglobin 12.2 g/dL (12.0-15.0); Immature Granulocyte Absolute 0.03 K/mm3 (0.00-0.031); Immature Granulocyte Percent A 0.3 % (0-0.5); Lymphocytes Absolute Auto 2.12 K/mm3 (0.9-3.2); Lymphocytes Percent Auto 23.2 % (18.3-44.2); Mean Corpuscular HGB Conc 30.8 g/dl (32-36); Mean Corpuscular Hemoglobin 24.2 pg (26-34); Mean Corpuscular Volume 78.6 fl (80-100); Mean Platelet Volume 10.7 fl (7.4-10.4); Monocytes Absolute Auto 1.1 K/mm3 (0.1-0.6); Monocytes Percent Auto 11.7 % (2.6-8.5); Neutrophils Absolute Auto 5.5 K/mm3 (1.3-6.7); Neutrophils Percent Auto 60.1 % (45.5-73.1); Platelet Count Result 264 k/mm3 (150-375); Red Blood Count 5.04 M/mm3 (4.2-5.4); Red Cell Distribution Width 17.3 % (11.5-14.5); White Blood Count 9.2 K/mm3 (4.5-10.0)
[2023-06-20 23:46] LABS: Alanine Aminotransferase 15 U/L (6-35); Albumin Level 4.4 g/dL (3.5-5.1); Alkaline Phosphatase 81 U/L (38-126); Anion Gap 8 mmol/L (8-16); Aspartate Amino Transferase 26 U/L (14-36); Bilirubin,Total 0.8 mg/dL (0.2-1.3); Blood Urea Nitrogen 11 mg/dL (7-17); Calcium 8.8 mg/dL (8.4-10.2); Carbon Dioxide 33 mmol/L (22-30); Chloride 95 mmol/L (98-107); Estimated CRCL calculation 97 ml/min; Estimated Glomerular Filt Rate > 60; Glucose 132 mg/dL (65-110); Potassium 3.6 mmol/L (3.4-5.0); Sodium 136 mmol/L (137-145)
[2023-06-21] VITALS (7 sets, daily range): BP systolic 100–152; BP diastolic 77–79; PULSE 75–91; RESP 18–21; TEMP 35.8; O2SAT 95–100; BMI 53.8
[2023-06-21 00:07] LABS: Influenza A QL RT-PCR Negative (Negative); Influenza B QL RT-PCR Negative (Negative); RSV RNA, RT-PCR Positive (Negative); SARS-CoV-2 RNA PCR Negative (Negative)
--- NOTE | 2023-06-21 01:33 | ED.SOB ---
HPI - SOB/Dyspnea General Chief Complaint: Shortness of Breath/Dyspnea <Justa Feng PA-C - Last Filed: 06/21/23 04:09> Stated Complaint: SOB, CONGESTED <INÉS Kamara Last Filed: 06/21/23 04:09> Time Seen by Provider: 06/21/23 01:03 <INÉS Kamara Last Filed: 06/21/23 04:09> Source: patient <INÉS Kamara Last Filed: 06/21/23 04:09> Mode of arrival: EMS <INÉS Kamara Last Filed: 06/21/23 04:09> Limitations: no limitations <INÉS Kamara Last Filed: 06/21/23 04:09> History of Present Illness HPI Narrative: Patient is a 68-year-old female, with PMH of sleep apnea, chf, afib anticoagulated on eliquis, who presents the ED via EMS with report of shortness of breath. Patient reports she has been sick over the last several days with cough, congestion, rhinorrhea, chest tightness, mild shortness of breath. Shortness of breath became worse today. She reports any time she exerts herself or lays flat she feels increasingly short of breath and developed heart palpitations. She tried using her CPAP machine, but denied improvement with this. EMS was then called. Patient was noted to be hypoxic by EMS into the mid 80s. She was placed on 2 L nasal cannula. She was given a partial breathing treatment EN route to the ED and did report some improvement with this. Denies chest pain. Denies fevers. Denies known sick contacts. Denies nausea, vomiting, abdominal pain. <INÉS Kamara Last Filed: 06/21/23 04:09> Related Data Home Medications: Home Medications Medication Instructions Recorded Confirmed calcium carbonate 500 mg calcium 600 mg PO DAILY 09/07/22 06/21/23 (1,250 mg) chewable tablet (Calcium 500) cetirizine 10 mg capsule (Zyrtec) 10 mg PO DAILY PRN Allergy Symptoms 09/07/22 06/21/23 magnesium 200 mg tablet 200 mg PO DAILY 09/07/22 06/21/23 <Justa Feng PA-C - Last Filed: 06/21/23 04:09> Allergies/Adverse Reactions: Allergies Allergy/AdvReac Type Severity Reaction Status Date / Time empagliflozin Allergy Unknown Hives Verified 06/21/23 04:50 iron Allergy Unknown Hives Verified 06/21/23 04:50 liraglutide Allergy Unknown Hives Verified 06/21/23 04:50 nickel Allergy Unknown Unknown Verified 06/21/23 04:50 adhesive AdvReac Unknown Rash Verified 06/21/23 04:50 <Justa Feng PA-C - Last Filed: 06/21/23 04:09> Review of Systems Review of Systems: CONSTITUTIONAL: Denies fever, chills, or sweats. ENT: See HPI. CARDIOVASCULAR: Denies chest pain, palpitations, or edema. RESPIRATORY: See HPI. GASTROINTESTINAL: Denies abdominal pain, nausea, vomiting, or diarrhea. <Justa Feng PA-C - Last Filed: 06/21/23 04:09> All systems reviewed & are unremarkable except as noted in HPI and below <Justa Feng PA-C - Last Filed: 06/21/23 04:09> [facility] Past Medical History Medical History: Medical History A-fib Anemia Diabetes Gastroesophageal reflux H/O bone density study (~2018) normal HLD (hyperlipidemia) HTN (hypertension) Iron deficiency Obesity, morbid, BMI 50 or higher Paroxysmal atrial fibrillation Vitamin D deficiency <Justa Feng PA-C - Last Filed: 06/21/23 04:09> Surgical History Surgical History: Surgical History H/O lateral meniscus repair of left knee H/O medial meniscus repair of right knee History of hysterectomy Status post bilateral knee replacements Status post ligament repair <Justa Feng PA-C - Last Filed: 06/21/23 04:09> Family History Family History: Family History Father Hypertension Other Cerebrovascular accident Diabetes mellitus <Justa Feng PA-C - Last Filed: 06/21/23 04:09>
[2023-06-21 01:38] LABS: Appearance Urine Clear (Clear); Bilirubin Urine Negative (Negative); Blood Urine Negative (Negative); Color Urine Yellow (Yellow); Glucose Urine UA Negative (Negative); Ketones Urine Negative (Negative); Leukocyte Esterase Ur Negative LEU/UL (Negative); Nitrate Urine Negative (Negative); Protein Urine Negative (Negative); Specific Grav Ur 1.003 (1.001-1.035); Urobilinogen Urine 0.2 mg/dL (<2.0); pH Urine 7.5 (5.0-9.0)
[2023-06-21] MEDS: LEVALBUTEROL NEB 1.25 MG/3 ML 2.5 MG INHALATION (01:45)
[2023-06-21] MEDS: IPRATROPIUM BR 0.02% INH SOLN 0.5 MG/2.5 ML VIAL 1.5 MG INHALATION (01:45)
[2023-06-21 01:55] LABS: Add Urine Microscopic? NO
[2023-06-21 02:09] LABS: NT Pro B Type Natriuretic Pept 1240 pg/mL (19.9-100); Troponin I < 0.012 ng/mL (0.000-0.034)
--- NOTE | 2023-06-21 02:25 | PM.IMHP ---
H&P: HPI History of Present Illness Date/Time: 06/21/23 02:25 Chief Complaint: shortness of breath Narrative: this is a 68-year-old female with past medical history significant for morbid obesity, hypertension, diabetes, atrial fibrillation, GERD. patient presents to the emergency room due to worsening shortness of breath for the last 4 days or so with Roland nose watery eyes dry cough and chest congestion. Denies fevers, chills ,rigors or body aches and pains, no nausea no vomiting no diarrhea or loose stool. Preliminary workup was significant for patient tested positive for RSV. While in the emergency room patient was noted to be wheezing and had a pulse ox of 88% requiring 2 L by nasal cannula. Patient is been placed in observation for further evaluation management and treatment. EXAMINATION: XR chest 2V DATE: 06/20/2023 23:43 INDICATION: Shortness of breath. Cough. TECHNIQUE: Frontal and lateral views of the chest were obtained. COMPARISON: Chest single view 04/07/2020, chest CT 04/04/2020 FINDINGS: There is mild atelectasis in right lower lung zone. No pleural effusion or pneumothorax. Cardiomegaly is noted. IMPRESSION: 1. Mild atelectasis in right lower lung zone. 2. Cardiomegaly. Review of Systems Review of Systems: Shortness of breath, watery eyes runny nose chest congestion dry cough positive RSV Constitutional: Constitutional: Denies chills, Denies fatigue, Denies fever(s), Denies malaise, Denies night sweats and Denies poor appetite Eyes: Eyes: Reports eye discharge ( watery discharge) ENT: Denies dysphagia and Denies odynophagia Cardiovascular: Cardiovascular: Denies chest pain, Denies radiating jaw, neck or arm pain and Denies palpitations Respiratory: Respiratory: Reports chest congestion, Reports cough, Denies excessive phlegm production, Reports dyspnea and Reports wheezing Gastrointestinal: Gastrointestinal: Denies abdominal pain, Denies dyspepsia, Denies heartburn, Denies diarrhea, Denies nausea and Denies vomiting Genitourinary: Genitourinary: Denies dysuria Musculoskeletal: Musculoskeletal: Denies myalgias Integumentary/Breasts: Skin/Breast: Denies rash Neurologic: Denies focal weakness and Denies Sensory deficit (Neuro) Psychiatric: Psychiatric: Reports no additional psychiatric complaints and Reports as per HPI Endocrine: Endocrine: Denies cold intolerance, Denies flushing, Denies heat intolerance, Denies polyphagia, Denies polydipsia, Denies polyuria and Denies palpitations Hematologic/Lymphatic: Hematologic/Lymphatic: Reports no additional hematologic/lymphatic complaints and Reports as per HPI Allergic/Immunologic: Allergic/Immunologic: Reports no additional allergic/immunologic complaints and Reports as per HPI PMFSH Past Medical History Medical History A-fib Anemia Diabetes Gastroesophageal reflux H/O bone density study (~2018) normal HLD (hyperlipidemia) HTN (hypertension) Iron deficiency Obesity, morbid, BMI 50 or higher Paroxysmal atrial fibrillation Vitamin D deficiency Surgical History Surgical History H/O lateral meniscus repair of left knee H/O medial meniscus repair of right knee History of hysterectomy Status post bilateral knee replacements Status post ligament repair Family History Family History Father Hypertension Other Cerebrovascular accident Diabetes mellitus Social History Social History Smoking status: Never smoker Second hand tobacco smoke exposure: No Alcohol intake: never Substance use: never Substance use type: does not use Lack of Transportation: No Lack of Food: Never True Current Housing: I Have Housing Concerned About Future Housing: No Difficulty Paying Gas/Electric Bi
--- NOTE | 2023-06-21 05:05 | ADMGEN ---
This patient, Dianne Hassan, was admitted to [facility] Surg Room 311-01. Patient/family oriented to hospital policies and general routines including ID bracelet, bed and alarms, visiting hours, pain management, procedures, bathroom and other care routines, personal items, smoking policy, room service/diet, and visiting hours. Information on how to activate the Rapid Response Team has been discussed. Patient/Family are encouraged to report perceived risks to care and to ask questions if they do not understand what they are told or what they should do.
[2023-06-21] MEDS: IPRATROPIUM BR 0.02% INH SOLN 0.5 MG/2.5 ML VIAL INHALATION (07:07)
[2023-06-21] MEDS: LEVALBUTEROL NEB 1.25 MG/3 ML 0.63 MG INHALATION (07:07)
[2023-06-21 07:52] LABS: Glucose Point of Care 129 mg/dl (65-105)
--- NOTE | 2023-06-21 10:23 | PM.DS ---
DS: Admitting Diagnosis Discharge Date 06/21/2023 Admitting Diagnosis RSV/Hypoxia DS: Discharge Diagnosis Discharge Diagnosis (1) Type 2 diabetes mellitus: Code(s): E11.9 - Type 2 diabetes mellitus without complications Status: Acute (2) RSV bronchitis: Code(s): J20.5 - Acute bronchitis due to respiratory syncytial virus Status: Acute (3) Acute hypoxic respiratory failure: Code(s): J96.01 - Acute respiratory failure with hypoxia Status: Acute (4) Obesity, morbid, BMI 50 or higher: Code(s): E66.01 - Morbid (severe) obesity due to excess calories Status: Acute Plan RSV -Supportive Care -Stay hydrated -Activity as tolerated -Acetaminophen for fever and mild body aches -OTC the decongestion -If symptoms return or worsen with difficulty breathing seek medical attention -encourage sleeping on side or stomach for increased lung expansion Diabetes discharge -educated patient on the need for blood sugar control for wound healing -Hemoglobin A1c goal less than 7 pending -lipid panels -Renal function liver panel every 3 months. . -Optimize Rob inhibitors and statins. -Watch for hypoglycemia/hypoglycemic -BMI goals less than 25. -Yearly eye exam and foot exam. -Exercise, diet low-salt low carb. Weight loss. -Primary care physician tooling engineering tech as an outpatient. Obesity -Encourage on lifestyle medications including diet and exercise DS: Summary Hospital Course Reason for hospitalization: RSV/Hypoxia Hospital Course: H&P This was a 68-year-old female with past medical history significant for morbid obesity, hypertension, diabetes, atrial fibrillation, GERD. patient presents to the emergency room due to worsening shortness of breath for the last 4 days or so with Roland nose watery eyes dry cough and chest congestion.? Denies fevers, chills ,rigors or body aches and pains, no nausea no vomiting no diarrhea or loose stool.? Preliminary workup was significant for patient tested positive for RSV.? While in the emergency room patient was noted to be wheezing and had a pulse ox of 88% requiring 2 L by nasal cannula.? Patient is been placed in observation for further evaluation management and treatment. Followed-up with patient sitting in chair in no acute distress, had multiple breathing treatments with overall improvement. Patient no longer requiring supplemental oxygen SPO2 95%. Patient is ambulatory and reports improvement to SOB. Patient was discharged home on supportive care for RSV. Encourage hydration, activity as tolerated, OTC decongestion PRN, and acetaminophen for fever or body aches. Status at Discharge Functional status at discharge: independent ambulation Overall status at discharge: patient is back to baseline Time Spent with Patient Time attestation: Total time spent providing and/or coordinating discharge services: Time spent: Less than 30 minutes Exam Const: General: comfortable and no acute distress HENMT: Ears: TM's normal bilaterally Face/Nose/Sinus: Normal nares present Mouth: Yes moist mucous membranes Eyes: General: appearance normal, both eyes and all related structures Pupils: Equal, round and reactive pupils present Neck: Neck: supple Resp: Auscultation: wheezes throughout Other: Mild Wheezing throughout Cardio: Rhythm: abnormal rhythm regularly irregular (AFIB) GI: GI Palp: Yes Soft to palpation Auscultation: normal bowel sounds : Other: Deferred Skin: Wounds: no wounds Neuro: General: gait normal Extrem: General: edema bilateral (2+) Psych: Mental Status: mental status grossly normal DS: Data Data Completed and Pending Labs on day of discharge: Labs from last 24 hours 06/21/23 06/21/23 06/20/23 07:47 01:29 23:23 WBC 9.2 RBC 5.04 Hgb 12.2 Hct 39.6 MCV 78.6 L MCH 24.2 L MCHC 30.8 L RDW 17.3 H Plt Count 264 MPV 10.7 H Immature Gran %
== END 2023-06-21 11:02 | disposition home or self-care (01) ==
LOC: ANHED 06-21 04:09 → ANH3MEDSUR 06-21 04:26
PROVIDERS: Emergency Medicine; Admitting Provider Internal Medicine; Emergency Provider Physician Assistant; PCP Family Medicine; Visit Provider Family Medicine
DX: J20.5 Acute bronchitis due to respiratory syncytial virus (principal); J96.01 Acute respiratory failure with hypoxia; G47.30 Sleep apnea, unspecified; Z99.89 Dependence on other enabling machines and devices; I11.0 Hypertensive heart disease with heart failure; I50.9 Heart failure, unspecified; I48.0 Paroxysmal atrial fibrillation; Z20.822 Contact with and (suspected) exposure to COVID-19; D64.9 Anemia, unspecified; E78.5 Hyperlipidemia, unspecified; E11.9 Type 2 diabetes mellitus without complications; K21.9 Gastro-esophageal reflux disease without esophagitis; E55.9 Vitamin D deficiency, unspecified; E66.01 Morbid (severe) obesity due to excess calories; Z68.43 Body mass index [BMI] 50.0-59.9, adult; Z79.01 Long term (current) use of anticoagulants; Z79.4 Long term (current) use of insulin; Z79.899 Other long term (current) drug therapy
CPT/HCPCS: 36415; 71046; 80053; 81003; 82948; 83880; 84484; 85025; 87637; 93005; 94640; 99285; G0378

== ENCOUNTER 2023-12-19 09:04 | Outpatient (CLI) | payer MEDICARE, SELFPAY ==
--- NOTE | 2024-01-12 14:50 | WPDSLEEPSTUD ---
Sleep Study Date of Study: 12/19/23 Ordering Provider: Glenys Sandra MD Interpreting Physician: Merle Benson DO Sleep Study Type: Split Polysomnogram Height: 1.73 m Weight: 161.479 kg Body Mass Index: 54.1 Neck Circumference (inches): 18 Ayden: 5 Reason for Sleep Study Daytime hypersomnia despite using CPAP Sleep History The patient is a 68-year-old female that had a sleep study ordered by her primary care physician for evaluation of increased hypersomnia despite CPAP use. The patient occasionally awakens from sleep short of breath. She rarely awakens at night with heartburn, belching or cough. She denies snoring. She occasionally has trouble sleeping when she has a cold. She occasionally wakes up gasping for air during the night. She occasionally has breathing problems at night observed by herself or others. She rarely sweats excessively at night. She occasionally has heart palpitations or irregular heartbeats during the night. She frequently falls asleep during the day but never while driving. She denies sleep paralysis, cataplexy and hypnagogic / hypnopompic hallucinations. She denies feeling afraid of going to sleep. She denies having nightmares. She frequently remembers her dreams. She frequently has thoughts racing through her mind. She rarely feels sad or depressed. She denies having anxiety. She rarely has muscular tension. She denies kicking during the night. She denies having crawling and aching feelings in her legs. She rarely has leg pain during the night. She rarely grinds her teeth during sleep and rarely awakens with morning jaw pain. She denies being awakened by pain during the night. She occasionally wakes up feeling stiff in the morning. She occasionally wakes up with sore or achy muscles. She occasionally wakes up with pain in the neck, spine in other joints. She goes to bed between 9-10 p.m. on weekdays and between 10:00 p.m. to midnight on the weekends. She is able to fall asleep relatively quickly. She wakes up 1-2 times throughout the night to urinate and is able to fall back asleep relatively quickly. She wakes up between 6-7 a.m. on both weekdays and weekends. She typically gets 8-9 hours of sleep per night. She does not stay in bed after waking up in the morning. She currently lives alone. Denies consuming caffeinated beverages within 2 hours of bedtime. She denies engaging in physical exercise before bedtime. She will watch television before falling asleep. She will occasionally read before falling asleep. She will take naps in afternoon. She consumes 20 oz of caffeinated soda per day. She is a former smoker. She denies alcohol and recreational drug use. [facility] Past Medical History Medical History A-fib Anemia Diabetes Gastroesophageal reflux H/O bone density study (~2018) normal HLD (hyperlipidemia) HTN (hypertension) Iron deficiency Obesity, morbid, BMI 50 or higher Paroxysmal atrial fibrillation Vitamin D deficiency Surgical History Surgical History H/O lateral meniscus repair of left knee H/O medial meniscus repair of right knee History of hysterectomy Status post bilateral knee replacements Status post ligament repair Family History Family History Father Hypertension Other Cerebrovascular accident Diabetes mellitus Social History Social History Smoking status: Never smoker Second hand tobacco smoke exposure: No Alcohol intake: former Substance use: never Substance use type: does not use Do You Feel Safe in your Home?: Yes Lack of Transportation: No Lack of Food: Never True Current Housing: I Have Housing Concerned About Future Housing: No Difficulty Paying Gas/Electric Bills: No Difficulty Paying
[2024-01-13 14:09] VITALS: BMI 54.1
== END 2023-12-20 07:55 | disposition home or self-care (01) ==
LOC: ANHCSM 09:04
PROVIDERS: PCP Family Medicine; Visit Provider Family Medicine
DX: G47.33 Obstructive sleep apnea (adult) (pediatric) (principal)
CPT/HCPCS: 95811

== ENCOUNTER 2024-01-27 08:21 | Outpatient (CLI) | payer MEDICARE, SELFPAY ==
--- NOTE | ~2024-01-27 | MM_ITS ---
EXAMINATION: MM screening ankit BI w marium HISTORY: Screening TECHNIQUE: Craniocaudal and mediolateral oblique 3-D tomosynthesis images were obtained and synthetic 2-D images were generated. CAD analysis was submitted and interpreted. COMPARISON: Comparison to multiple prior studies sequentially, with oldest reviewed study dated 03/02. BREAST PARENCHYMAL COMPOSITION: Not dense: There are scattered areas of fibroglandular density. FINDINGS: There is no evidence of suspicious mass, calcification, or architectural distortion to sugg est malignancy in either breast. There has been no suspicious interval change. IMPRESSION: 1. No mammographic evidence of malignancy. 2. Recommend routine screening mammography in one year. BI-RADS Category 1: Negative Reviewed, dictated and finalized at location B.
== END 2024-01-27 08:22 | disposition home or self-care (01) ==
LOC: MICIMG 08:22
PROVIDERS: PCP Family Medicine; Visit Provider Family Medicine
DX: Z12.31 Encounter for screening mammogram for malignant neoplasm of breast (principal)
CPT/HCPCS: 77063; 77067

== ENCOUNTER 2024-12-11 13:01 | Outpatient (CLI) | payer MEDICARE, SELFPAY ==
--- NOTE | ~2024-12-11 | DEXA_ITS ---
Bone Density Report Name: LESLEY CONNOLLY Age: 69 Sex: Female Ethnicity: White Date of : 1955 Indication: monitoring treatment; parental hip fracture; height loss; hysterectomy; Referring Provider: LENI DENTON Study: Bone densitometry was performed. Exam Date: December 11, 2024 Accession number: [id number] Bone Density: Region BMD T-score Z-score Classification AP Spine(L1-L4) 1.044 0.0 2.0 Normal Femoral Neck (Left) 0.757 -0.8 0.9 Normal Total Hip (Left) 1.008 0.5 2.0 Normal Femoral Neck (Right) 0.371 -4.3 -2.6 Osteoporosis Total Hip (Right) 1.012 0.6 2.0 Normal Total Hip Mean 1.010 0.6 2.0 Normal World Health Organization criteria for BMD impression classify patients as: Normal (T-score at or above -1.0), Osteopenia (T-score between -1.0 and -2.5), or Osteoporosis (T-score at or below -2.5). 10-year Fracture Risk: FRAX not reported because: Some T-score for Spine Total or Hip Total or Femoral Neck at or below -2.5 Treated for osteoporosis Previous Exams: Region Exam Age BMD T-score BMD Change BMD Change Date g/cm2 vs Baseline vs Previous Total Hip(Left) 12/11/2024 69 1.008 0.5 -0.086 (-7.9%) -0.086 (-7.9%) 03/18/2019 64 1.094 1.2 Total Hip(Right) 12/11/2024 69 1.012 0.6 0.003 (0.3%)# 0.003 (0.3%)# 03/18/2019 64 1.009 0.5 *Denotes significance at 95% confidence level, LSC for Total Hip = 0.027 g/cm2 # Denotes dissimilar scan types or analysis methods Clinical Information Provided by Patient: Parent has had a hip fracture Is being treated for osteoporosis Has used the following medications: Vitamin D, Calcium Has the following medical conditions: Hysterectomy Patient maximum height was 68.0 Menopause Age: 47 No regular weight bearing exercise Drinks caffeinated beverages Onset of menses at age 12 Number of children 0 Impression: The patient has osteoporosis, based on the Right Femoral Neck T-score. The patient has risk factors, including: parental hip fracture. No significant bone loss was observed. Discussion: PATIENT UNDER TREATMENT WITH NO SIGNIFICANT BMD LOSS SINCE LAST EXAM. In an untreated patient, BMD typically declines with age. A lack of decline or gain is usually a sign that treatment is efficacious and fracture risk is reduced. It is important to ask patients whether they are taking their medications and to encourage continued and appropriate compliance with their osteoporosis therapies to reduce fracture risk. It is also important to review their risk factors and encourage appropriate calcium and vitamin D intakes, exercise, fall prevention and other lifestyle measures. Follow-Up: Consider a repeat BMD and Vertebral Fracture Assessment (VFA) exam in 2 years or sooner if medically necessary, to reassess this patient's status. Reported by: KRISTYN on 12/11/2024 1:48:00 PM. Reviewed, dictated and finalized at location A.
--- OUTSIDE RECORDS SUMMARY | 2024-12-11 13:05 | XMS_ITS | Clinical Summary ---
Author Organization [facility] [address] Address [address] [place] [address] Care Team Providers Care Metal Stamping Machine Operator Name Role Phone Glenys Sandra MD Primary Care Provider [phone] Allergies Active Allergy Reactions Criticality Noted Date Comments Iron Rash Medium 10/11/2016 When on for 3+ days. Empagliflozin Rash Medium 05/15/2018 Liraglutide Itching,Rash Medium 10/11/2016 Medications bumetanide (BUMEX) 2 mg tablet take 1 tablet (2MG) by oral route every day 0 2 Active Additional Information Patient taking differently:2 mgoral 2 times daily, Reported on 09/19/2024 simvastatin (ZOCOR) 10 mg tablet take 1 tablet (10MG) by oral route every day in the evening 0 2 Active losartan (COZAAR) 25 mg tablet take 1 tablet (25MG) by oral route every day 0 3 Active apixaban (ELIQUIS) 5 mg tablet take 1 tablet by oral route 2 times every day 0 0 5 Active metFORMIN (GLUCOPHAGE) 1,000 mg tablet take 1 tablet (1000MG) by oral route IN THE MORNING and 1500 in the evening with meals 0 6 Active [id number] 600 mg calcium- 800 unit-50 mg tablet Take 2 tablets by mouth daily. Active metoprolol XL (TOPROL-XL) 50 mg 24 hr tabletIndication s:Chronic atrial fibrillation (HCC) TAKE 2 TABLETS DAILY 180 tablet [address] (PROTONIX) 20 mg EC tablet Take 1 tablet (20 mg total) by mouth daily Active TOUJEO MAX 300 unit/mL (3 mL) pen for injection Inject 54 Units as directed 2 (two) times a day 2 Active folic acid (FOLVITE) 1 mg tablet 2 Active cyanocobalamin (Vitamin B-12) 1,000 mcg/mL injection 2 Active dilTIAZem XR (dilTIAZem CD) 240 mg 24 hr capsule Take 1 capsule (240 mg total) by mouth daily 10 capsule 2 Active Additional Information Patient taking differently:240 mg oral2 times daily, Reported on 09/19/2024 ergocalciferol (VITAMIN D) 50,000 unit capsule 2 Active potassium chloride ER 20 mEq CR tablet Take 2 tablets (40 mEq total) by mouth daily Active cyanocobalamin (Vitamin B-12) 100 mcg tabletIndication s:Prevention of Vitamin B12 Deficiency Take 1 tablet (100 mcg total) by mouth daily Active ferrous sulfate 325 mg (65 mg of elemental iron) tabletIndication s:Iron Deficiency Anemia Take 1 tablet (325 mg total) by mouth daily with breakfast Active Hospital, Clinic, or Other Facility Administered Medication Ordered Dose Route Frequency Start Date End Date Status perflutren lipid (DEFINITY) 1.5 mL in sodium chloride 0.9% 10 mL syringe 1 - 10 mL IV Once in imaging 12/16/2021 Active Active Problems Problem Noted Date Diagnosed Date Chronic atrial fibrillation 05/02/2017 Morbid obesity with body mass index of 50.0-59.9 in adult 05/02/2017 Closed fracture of head of radius 12/21/2009 Encounters Date Type Department Care Team Description 09/19/2024 8:30 AM CDT Office Visit [facility] Card[facility] [address] [place] [address] Padilla Winchester MD Chronic atrial fibrillation (HCC) (Primary Dx) 09/19/2024 Orders Only [facility] Medical [facility] Cardiology [address] [place] [address] Provider, MD Jenny from Last 3 Months Medical History Medical History Date Comments Hypertension Hypertension Hx Other Medical Diabetes Type I I Social History Tobacco Use Types Packs/Day Years Used Date Smoking Tobacco: Never Smokeless Tobacco: Never Tobacco Cessation:Counseling Given: Not Answered Alcohol Use Standard Drinks/Week Comments No 0 (1 standard drink = 0.6 oz pur e alcohol) Comments Unknown Sex and Gender Information Value Date Recorded Sex Assigned at Not on file Legal Sex Female 1:38 AM TELECOMMUNICATIONS CONSULTANT Gender Identity Not on file Sexual Orientation Not on file Obstetrics History Last Filed Vital Signs Vital Sign Reading Time Taken Comments Blood Pressure 124/78 09/19/2024 8:19 AM CDT Pulse 87 09/19/2024 8:19 AM CDT Temperature - - Respiratory Rate - - Oxygen Saturation 96% 09/19/2024 8:19 AM CDT Inhaled Oxygen Concentration - - Weight 161.2 kg (355 lb 4.8 oz) 09/19/2024 8:19 AM CDT Height 172.7 cm (5' 8) 09/19/2024 8:19 AM CDT Body Mass Index 54.02 09/19/2024 8:19 AM CDT Plan of Treatment Health Maintenance Due Date Last Done Comments Breast Cancer Screening-Mammogram 1955 Colon Cancer Screening-Colonoscopy 1955 Depression Screening 1955 Fall Risk Assessment 1955 Hepatitis C Screening 1955 Osteoporosis Screening-Bone Density Scan 1955 Hepatitis B Screening 02/14/1974 Pneumococcal vaccine 65+ (1 of 2 - PCV) 02/14/1975 Zoster Vaccine (1 of 2) 02/14/2006 Well Visit 65+ 02/14/2021 DTaP/Tdap/Td Vaccine (2 - Td or Tdap) 06/10/2023 06/10/2013 Covid-19 Vaccine (3 - 2023-2 5 season) 2023 06/16/2020, 05/26/2020 Influenza Vaccine (#1) 2024 8, 01/31/2017, 03/08/2016, Additional history exists Insurance MEDICARE ADVANTAGE MEDICARE ADVANTAGE Care Teams Metal Stamping Machine Operator Relationship Specialty Start Date End Date Glenys Sandra MD PCP - General Family Medicine 05/14/19
--- OUTSIDE RECORDS SUMMARY | 2024-12-11 13:05 | XMS_ITS | Clinical Summary ---
Author Organization [facility] Address [address] [place] [address] Care Team Providers Care Certified Indoor Environmentalist Name Role Phone Sawyer Leon MD Primary Care Provider [phone] Source Comments [facility],non-owned Affiliates and Associated Physician Practices is amultiple site organization consisting of ambulatory clinics and hospital sitesin [place], [place], [place] and [place]. This disclosure is being madepursuant to the Care Everywhere program and may not contain all information available regarding this patient. Last updated 18.[facility] [employer] Allergies Active Allergy Reactions Criticality Noted Date Comments Iron Rash Medium 10/11/2016 When on for 3+ days. Liraglutide Rash,Itching Medium 10/11/2016 Medications * Be aware that medications may not be up to date on this document. Alwaysverify current medications with the patient. Empagliflozin- Metformin HCl (SYNJARDY PO) Active ATENOLOL PO Active DilTIAZem HCl Coated Beads (DILTIAZEM CD PO) Active Apixaban (ELIQUIS PO) Take by mouth 2 times daily Active metFORMIN (GLUCOPHAGE) 1000 MG tablet Take 1,000 mg by mouth 2 times daily with morning and evening meal Active OMEPRAZOLE PO Take by mouth once daily Active potassium chloride (KLOR-CON) 10 MEQ tablet Take 10 mEq by mouth once daily Active Insulin Degludec (TRESIBA FLEXTOUCH SC) Inject subcutaneously once daily Active losartan (COZAAR) 25 MG tablet Take 25 mg by mouth once daily Active simvastatin (ZOCOR) 2.5 mg tablet Take 2.5 mg by mouth at bedtime Active Bumetanide (BUMEX PO) Active Vitamin D, Cholecalcifero l, 1000 UNITS CAPS Active Active Problems No known active problems Immunizations Immunization Administration Dates Next Due Covid Pfizer primary monoval ent 12+ yr 0.3mL Purple cap 06/16/2020,05/26/2020 Social History Tobacco Use Types Packs/Day Years Used Date Smoking Tobacco: Never Smokeless Tobacco: Never Alcohol Use Standard Drinks/Week Comments No 0 (1 standard drink = 0.6 oz pur e alcohol) Comments No Sex and Gender Information Value Date Recorded Sex Assigned at Not on file Legal Sex Female 7:54 AM COMPENSATION INTERN Gender Identity Not on file Sexual Orientation Not on file Last Filed Vital Signs Vital Sign Reading Time Taken Comments Blood Pressure 132/76 10/11/2016 4:28 PM CDT Pulse 124 10/11/2016 4:28 PM CDT hx of afib Temperature 36.6 C (97.8 F) 10/11/2016 4:28 PM CDT Respiratory Rate 24 10/11/2016 4:28 PM CDT Oxygen Saturation 96% 10/11/2016 4:2 8 PM CDT Inhaled Oxygen Concentration - - Weight 156.9 kg (345 lb 12. 8 oz) 10/11/2016 4:28 PM CDT Height 172.7 cm (5' 8) 10/11/2016 4:28 PM CDT Body Mass Index 52.58 10/11/2016 4:28 PM CDT Plan of Treatment Health Maintenance Due Date Last Done Comments BONE DENSITY TESTING 1955 COLOGUARD (AGES 45-75) - COL ON CA SCREENING 1956 COLON MONITORING 1956 COLONOSCOPY - COLON CA SCREENING 1956 CT COLONOGRAPHY - COLON CA SCREENING 1956 Colorectal Cancer Screening 1956 FIT - COLON CA SCREENING 1956 FLEX SIG - COLON CA SCREENING 1956 MAMMOGRAM 1956 HEPATITIS C SCREENING 02/10/1974 DTAP/TDAP/TD VACCINES (1 - Tdap) 02/14/1975 PNEUMOCOCCAL VACCINE 50+ (1 of 1 - PCV) 02/14/2006 ZOSTER VACCINE (1 of 2) 02/14/2006 COVID-19 VACCINE (3 - 2023-2 5 season) 2023 06/16/2020, 05/26/2020 DEPRESSION SCREENING 05/01/2024 INFLUENZA VACCINE (#1) 2024 Respiratory Syncytial Virus (RSV) Vaccine Pt: or over 60 yrs (1 - 1-dose 75+ series) 02/14/2031 HEPATITIS B VACCINE Aged Out No longe r eligible based on patient's age to complete this topic HIB VACCINE Aged Out No longer eligi ble based on patient's age to complete this topic HPV VACCINE Aged Out No longer eligi ble based on patient's age to complete this topic MENINGOCOCCAL (Group B) VACCINE SHARED DECISION-MAKING Aged Out No longer eligible based on patient's age to complete this topic MENINGOCOCCAL GROUPS A/C/Y/W VACCINE Aged Out No longer eligible b ased on patient's age to complete this topic Insurance Care Teams Certified Indoor Environmentalist Relationship Specialty Start Date End Date Sawyer Leon MD [address] [place] [address] PCP - General Internal Medicine 10/11/16
--- OUTSIDE RECORDS SUMMARY | 2024-12-11 13:05 | XMS_ITS | Clinical Summary ---
Author Organization [facility] Address [address] [place] [address] Care Team Providers Care Health And Wellness Coordinator Name Role Phone Glenys Sandra MD Primary Care Provider [phone] Allergies Active Allergy Reactions Criticality Noted Date Comments Empagliflozin Rash Medium 05/15/2018 Iron Rash Medium 10/11/2016 When on for 3+ days. When on for 3+ days. Liraglutide Itching,Rash Medium 10/11/2016 Medications metFORMIN (GLUCOPHAGE) 1,000 mg tablet Take 1,000 mg by mouth 2 times daily with meals. Active bumetanide (BUMEX) 2 mg tablet Take 2 mg by mouth daily. Active apixaban (ELIQUIS) 5 mg tablet Take by mouth 2 times daily. Active potassium chloride (KLOR-CON) 20 mEq Extended Release tablet Take 20 mEq by mouth daily. Active metoprolol tartrate (LOPRESSOR) 50 mg tablet Take 50 mg by mouth 2 times daily. Active simvastatin (ZOCOR) 10 mg tablet Take 10 mg by mouth daily with supper. Active diltiaZEM (TIAZAC) 240 mg Extended Release capsule Take 240 mg by mouth daily. Active omeprazole (PriLOSEC) 20 mg Capsule, Delayed Release(E.C.) Take 20 mg by mouth daily. Active losartan (COZAAR) 25 mg tablet Take 25 mg by mouth daily. Active cetirizine (ZyrTEC) 10 mg tablet Take 10 mg by mouth daily. Active calcium citrate-vitamin D3 (CITRACAL WITH VIT D) 200 mg calcium -250 unit Tablet Take by mouth. Act torrey folic acid/multivit-m in/lutein (CENTRUM SILVER ORAL) Take by mouth. Activ e TRESIBA FLEXTOUCH U-200 200 unit/mL (3 mL) pen syringe 100 mL by Injection route daily. 9 Active cyanocobalamin (VITAMIN B-12) 1,000 mcg/mL Solution Inject 1 mL (1,000 mcg) by intramuscular injection every 30 days. 3 mL 4 9 Active Syringe with Needle, Safety (SURGUARD2 SAFETY) 3 mL 23 gauge x 1 SyringeIndicati ons:Iron deficiency anemia, unspecified iron deficiency anemia type,Other vitamin B12 deficiency anemia To be used for B12 injections. 3 Package 4 9 Active metoprolol succinate (TOPROL XL) 50 mg Extended Release 24 hour tablet TAKE 2 TABLETS DAILY 9 Active simvastatin (ZOCOR) 10 mg tablet Take 2.5 mg by mouth. Active omeprazole 100 % Powder Take by mouth. Activ e raNITIdine (ZANTAC) 300 mg Capsule 0 Active Active Problems Problem Noted Date Diagnosed Date Vitamin B12 deficiency (non anemic) 02/12/2019 Microcytic anemia 02/12/2019 Family History Medical History Relation Name Comments Heart Disease Brother Heart Disease Father Diabetes Mother Heart Disease Mother Diabetes Sister 1 Heart Disease Sister 1 Diabetes Sister 2 Relation Name Status Comments Brother Father Mother Sister 1 Alive Sister 2 Alive Social History Tobacco Use Types Packs/Day Years Used Date Smoking Tobacco: Former Cigarettes 0.3 5 0 09/13/1959 - 09/12/1964 Smokeless Tobacco: Never Alcohol Use Standard Drinks/Week Comments Not Currently 0 (1 standard drink = 0.6 oz pur e alcohol) Comments No Sex and Gender Information Value Date Recorded Sex Assigned at Not on file Legal Sex Female 11:19 AM CDT Gender Identity Not on file Sexual Orientation Not on file Last Filed Vital Signs Vital Sign Reading Time Taken Comments Blood Pressure 145/83 05/15/2019 8:28 AM HEAD BONE GRINDER Pulse 84 05/15/2019 8:28 AM HEAD BONE GRINDER Temperature 36.7 C (98 F) 05/15/2019 8:28 AM HEAD BONE GRINDER Respiratory Rate 22 02/12/2019 8:37 AM CDT Oxygen Saturation 98% 05/15/2019 8:28 AM HEAD BONE GRINDER Inhaled Oxygen Concentration - - Weight 69.3 kg (152 lb 11.2 oz) 05/15/2019 8:28 AM HEAD BONE GRINDER Height 172.7 cm (5' 8) 05/15/2019 8:28 AM HEAD BONE GRINDER Body Mass Index 23.22 05/15/2019 8:28 AM HEAD BONE GRINDER Plan of Treatment Health Maintenance Due Date Last Done Comments DTAP/TDAP/TD VACCINES (1 - Tdap) 02/14/1975 PNEUMOCOCCAL VACCINE 50+ YEARS (1 of 2 - PCV) 02/14/19 76 BREAST CANCER SCREENING 1996 COLORECTAL SCREENING 02/14/2001 Colorectal Cancer Screening 02/14/2001 FIT-DNA Q 3 years 02/14/2001 FIT/FOBT Q 1 year 02/14/2001 Flex Sig/CT Colonography Q 5 years 02/14/2001 ZOSTER VACCINE (1 of 2) 02/14/2006 OSTEOPOROSIS SCREENING 02/14/2021 INFLUENZA VACCINE (#1) 2024 RSV VACCINE (60+ or ) (1 - 1-dose 75+ series) 02/14/2031 Insurance [employer] CHOICE Care Teams Health And Wellness Coordinator Relationship Specialty Start Date End Date Glenys Sandra MD [address] [place] [address] PCP - General Family Practice 05/15/19
== END 2024-12-11 13:02 | disposition home or self-care (01) ==
LOC: ANHIMG 13:04
PROVIDERS: PCP Family Medicine; Visit Provider Family Medicine
DX: Z78.0 Asymptomatic menopausal state (principal); M81.0 Age-related osteoporosis without current pathological fracture
CPT/HCPCS: 77080

== ENCOUNTER 2025-03-26 16:25 | Emergency (ER) | payer MEDICARE, SELFPAY ==
--- NOTE | 2025-03-26 16:26 | ED.EYEPROB ---
HPI - Eye Problem General Chief complaint: Eye Problems Stated complaint: Lt Eye Problem Time Seen by Provider: 03/26/25 16:25 Source: patient Mode of arrival: ambulatory Limitations: no limitations History of Present Illness HPI Narrative: Maria De Jesus is a 70-year-old female patient presenting to the clinic today with complaints of left eye pain, redness, and watery drainage. She reports she accidentally poked herself in the left eye this morning. Does have some blurry vision and her left eye. Related Data Home Medications ?Medication ?Instructions ?Recorded ?Confirmed ?Last Taken ?Type calcium carbonate (Calcium 500) 600 mg PO DAILY 09/07/22 10/03/24 Unknown History cetirizine 10 mg capsule (Zyrtec) 10 mg PO DAILY PRN Allergy Symptoms 09/07/22 10/03/24 Unknown History magnesium 200 mg tablet 200 mg PO DAILY 09/07/22 10/03/24 Unknown History Allergies Allergy/AdvReac Type Severity Reaction Status Date / Time empagliflozin Allergy Unknown Hives Verified 03/26/25 16:46 iron Allergy Unknown Hives Verified 03/26/25 16:46 liraglutide Allergy Unknown Hives Verified 03/26/25 16:46 adhesive AdvReac Unknown Rash Verified 03/26/25 16:46 Review of Systems Review of Systems: Pertinent positives per HPI. Patient denies any fever, chills, rash, headache, dizziness, cough, runny nose, sore throat, shortness of breath, chest pain, palpitations, nausea, vomiting, diarrhea, constipation, abdominal pain, or any urinary issues. [facility] Past Medical History Medical History Obesity, morbid, BMI 50 or higher Anemia Iron deficiency Gastroesophageal reflux Vitamin D deficiency Paroxysmal atrial fibrillation H/O bone density study (~2018) normal Diabetes A-fib HTN (hypertension) HLD (hyperlipidemia) Surgical History Surgical History Status post bilateral knee replacements H/O medial meniscus repair of right knee H/O lateral meniscus repair of left knee Status post ligament repair History of hysterectomy Family History Family History Father Hypertension Other Cerebrovascular accident Diabetes mellitus Social History Social History Smoking status: Never smoker Second hand tobacco smoke exposure: No Alcohol intake: former Substance use: never Substance use type: does not use Lack of Transportation: No Lack of Food: Never True Current Housing: I Have Housing Concerned About Future Housing: No Difficulty Paying Gas/Electric Bills: No Difficulty Paying for Meds: No Currently Unemployed: No Education: Bachelor's Degree Difficulty w/ Childcare or Family Care: No Living arrangements: with family Occupation/Education: retired Gender identity (if verbalized by the patient): Female Spiritual care concerns: No Agree to blood products: Yes Comments At the time of my signature, I reviewed and agree with the nursing past medical, surgical, social, and family history. There is no relevant family history pertinent to the patient complaint. Exam Narrative: General: Well-developed, morbidly obese, in no apparent distress Head: Normocephalic, atraumatic Eyes: Pupils equally round and reactive to light bilaterally, EOM intact, right sclera and conjunctive clear, no drainage from the right eye, left sclera and conjunctiva injected, clear/yellow discharge from the left eye, lids normal, wood lamp exam performed- corneal abrasion to mid corneal over the iris just below the pupil Ears: TMs intact and clear, ear canals clear, no drainage, grossly hearing normal. Nose: Nares patent, no discharge, no inflammation, no sinus tenderness. Mouth: Oropharynx without lesions or masses, good dentition, MMM. Neck: Supple, trachea midline, no enlargement of anterior or posterior cervical nodes, no thyroid masses or goiter palpable. Cardio: Regular rate and rhythm, s1 and s2 normal, no murmur appreciated. Resp: Clear to auscultation bilaterally anteriorly and posteriorly, no rhonchi, rales, wheezing or rubs Course Course Emergency Course: Portions of this record may have been created with voice recognition software. Level of Care: Express Care Visit Vital Signs Vital signs: Vital Signs Temperature 36.6 C 03/26/25 16:33 Pulse Rate 72 03/26/25 16:33 Respiratory Rate 20 03/26/25 16:33 Blood Pressure 143/60 H 03/26/25 16:33 Pulse Oximetry 97 03/26/25 16:33 Oxygen Delivery Room Air 03/26/25 16:33 Temperature 36.6 C 03/26/25 16:33 Pulse Rate 72 03/26/25 16:33 Respiratory Rate 20 03/26/25 16:33 Blood Pressure 143/60 H 03/26/25 16:33 Pulse Oximetry 97 03/26/25 16:33 Oxygen Delivery Room Air 03/26/25 16:33 Vital signs reviewed MDM - Eye Problem MDM Narrative Medical decision making narrative: At the time of visit patient is resting comfortably on the exam table. Patient appears to be nontoxic. Complaints of left eye pain, redness, and watery drainage. She reports she accidentally poked herself in the left eye this morning. Does have some blurry vision and her left eye. On exam pupils equally round and reactive to light bilaterally, EOM intact, right sclera and conjunctive clear, no drainage from the right eye, left sclera and conjunctiva injected, clear/yellow discharge from the left eye, lids normal, wood lamp exam performed- corneal abrasion to mid corneal over the iris just below the pupil. No Ifrah sign. Procedures: 1 drop of topical tetracaine anesthetic was instilled with good anesthesia. Fluorescein stain of the left eye was performed with small corneal abrasion noted to the mid eye over the iris just below the pupil. NO FB, ulcer or dendritic lesions. Upper lid was everted and no FB or lesions were noted. NO Ifrah sign. Normal saline irrigation eye solution was performed and the patient tolerated the procedure well, no adverse reaction or complications. Noted visual acuity. Plan: Patient has corneal abrasion. Is having some clear yellowish discharge coming from the left eye. Will send in prescription for ofloxacin eyedrops. Supportive measures were discussed with the patient and they voiced understanding discharge instructions and agrees to treatment plan. Return precautions reviewed Differential Diagnosis Differential diagnosis: Likely corneal abrasion, conjunctivitis, acute iritis, hyphema, periorbital cellulitis, subconjunctival hemorrhage, glaucoma, corneal ulcer and ruptured globe Discharge Plan Discharge Clinical Impression: Corneal abrasion Qualifiers: Encounter type: initial encounter Laterality: left Qualified Code(s): S05.02XA - Injury of conjunctiva and corneal abrasion without foreign body, left eye, initial encounter Patient Disposition: Home Condition: Stable Instructions: Antibiotic Form, Corneal Abrasion (ED) Additional Instructions: Practice good hand washing techniques Avoid touching eyes Instill eyedrops as prescribed-tobramycin May use warm moist washcloth to help remove eye discharge If eyes are matted shut-do not pry eyes open-use a warm moist cloth to loosen matting and wipe matter away from eye May take Tylenol/Motrin as needed for pain or fever May take Benadryl as needed for itching Follow-up with your PCP in 3-5 days if symptoms persist or sooner if they worsen Go to the emergency room if you develop any fever that is not controlled by Tylenol or Motrin, loss of vision, eye pain, increase eye swelling,visual changes, headache, confusion, lethargy, weakness, chest pain, or shortness of breath. Patient Language: Upper Sorbian Prescriptions: New ofloxacin 0.3 % drops See Rx Instructions .ROUTE .COMPLEX 7 Days Qty: 10 0RF Rx Instructions: put 1-2 drps into affected eye(s) every 2-4 h x 2 days, then 1-2 drps 4 times/day days 3-7 No Action (DME) FreeStyle Pineda 2 Sensor Kit See Rx Instructions .Route Qty: 2 12RF Rx Instructions: As directed for daily use (DME) MMR vaccine See Rx Instructions .Route .MEDSUPPLY Qty: 1 0RF Rx Instructions: As directed for injection (DME) pen needle, diabetic [BD Ultra-Fine Vanessa Pen Needle] 32 gauge x 5/32 needle See Rx Instructions .Route Qty: 200 11RF Rx Instructions: As directed bid calcium carbonate [Calcium 500] 500 mg calcium (1,250 mg) tablet,chewable 600 mg PO DAILY magnesium 200 mg tablet 200 mg PO DAILY Zyrtec 10 mg capsule 10 mg PO DAILY PRN (Reason: Allergy Symptoms) (DME) cpap 16 cm H2O, mask and tubing See Rx Instructions .Route .MEDSUPPLY Qty: 1 0RF Rx Instructions: As directed nightly bumetanide 2 mg tablet 2 mg PO BID Qty: 180 3RF metformin 1,000 mg tablet 1,000 mg PO BID Qty: 180 3RF pantoprazole 20 mg tablet,delayed release (DR/EC) 20 mg PO DAILY Qty: 90 3RF Toujeo Max U-300 SoloStar 300 unit/mL (3 mL) insulin pen 54 unit subcut BID 90 Days Qty: 32.4 3RF Rx Instructions: Replacement for Tresiba which was not covered losartan 50 mg tablet 25 mg PO DAILY Qty: 45 3RF ergocalciferol (vitamin D2) 1,250 mcg (50,000 unit) capsule 1,250 mcg PO WEEKLY Qty: 14 1RF Rx Instructions: takes on Monday Eliquis 5 mg tablet 5 mg PO BID Qty: 180 1RF metoprolol succinate 50 mg tablet extended release 24 hr 100 mg PO DAILY Qty: 180 1RF diltiazem HCl 240 mg capsule,extended release 24hr 240 mg PO BID Qty: 180 1RF potassium chloride 10 mEq tablet extended release 20 meq PO DAILY Qty: 180 1RF (DME) Accu-Chek Guide test strips Strip See Rx Instructions .Route Qty: 300 12RF Rx Instructions: As directed BID (DME) blood-glucose meter [Accu-Chek Guide Glucose Meter] Misc See Rx Instructions .Route Qty: 1 0RF Rx Instructions: As directed BID folic acid 1 mg tablet See Rx Instructions .ROUTE .COMPLEX Qty: 90 3RF Dose Instruction: TAKE 1 TABLET DAILY Rx Instructions: TAKE 1 TABLET DAILY simvastatin 10 mg tablet 10 mg PO HS Qty: 90 2RF Follow-up/Referrals: Boaz,MD Glenys [Primary Care Provider, Family Practice] Time of Disposition: 16:50 Quality NIHSS Nursing Documentation ED NIHSS nursing documentation: reviewed/agree
[2025-03-26 16:33] VITALS: BP 143/60; PULSE 72; RESP 20; TEMP 36.6; O2SAT 97
[2025-03-26] MEDS: DACRIOSE EYE IRRIGATION 118 ML BOTTLE LEFT EYE (16:58)
[2025-03-26] MEDS: TETRACAINE HCL 0.5% OPHTH SOLN 4 ML BTL LEFT EYE (16:59)
[2025-03-26] MEDS: FLUORESCEIN SOD 1 MG/STRIP LEFT EYE (16:59)
== END 2025-03-26 17:03 | disposition home or self-care (01) ==
PROVIDERS: Emergency Provider Nurse Practitioner Family; PCP Family Medicine
DX: S05.02XA Injury of conjunctiva and corneal abrasion without foreign body, left eye, initial encounter (principal); E11.9 Type 2 diabetes mellitus without complications; I48.0 Paroxysmal atrial fibrillation; I10 Essential (primary) hypertension; E78.5 Hyperlipidemia, unspecified; X58.XXXA Exposure to other specified factors, initial encounter
CPT/HCPCS: 99213; A9270; G0463